=== PATIENT | male | born 1950 | race Caucasian/White ===

== ENCOUNTER → 2020-08-12 10:00 | Outpatient (BNVA) | payer OTHER, SELFPAY | PROVIDERS: PCP Internal Medicine; Visit Provider Urology | DX: C61 Malignant neoplasm of prostate (principal); R23.2 Flushing | CPT/HCPCS: 99212 ==

== ENCOUNTER → 2020-09-25 09:30 | Outpatient (BNVA) | payer OTHER, SELFPAY | PROVIDERS: Visit Provider Urology | DX: C61 Malignant neoplasm of prostate (principal) | CPT/HCPCS: 96402; 99212; J9217 ==

== ENCOUNTER → 2020-12-25 08:30 | Outpatient (BNVA) | payer OTHER, SELFPAY | PROVIDERS: PCP Internal Medicine; Visit Provider Urology | DX: C61 Malignant neoplasm of prostate (principal); R23.2 Flushing | CPT/HCPCS: 99212 ==

== ENCOUNTER → 2021-03-26 09:18 | Outpatient (BNVA) | payer OTHER, SELFPAY | PROVIDERS: PCP Internal Medicine; Visit Provider Urology | DX: R35.1 Nocturia (principal); R23.2 Flushing; C61 Malignant neoplasm of prostate | CPT/HCPCS: 99212 ==

== ENCOUNTER → 2021-04-01 08:47 | Outpatient (BNVA) | payer OTHER, SELFPAY | PROVIDERS: PCP Internal Medicine; Visit Provider Urology | DX: C61 Malignant neoplasm of prostate (principal) | CPT/HCPCS: 96402; J9217 ==

== ENCOUNTER → 2021-07-23 10:37 | Outpatient (BNVA) | payer OTHER, SELFPAY | PROVIDERS: PCP Internal Medicine; Visit Provider Urology ==

== ENCOUNTER → 2021-12-04 09:04 | Outpatient (BNVA) | payer OTHER, SELFPAY | PROVIDERS: PCP Internal Medicine; Visit Provider Urology | DX: C61 Malignant neoplasm of prostate (principal); N52.9 Male erectile dysfunction, unspecified; R35.1 Nocturia | CPT/HCPCS: Q3014 ==

== ENCOUNTER 2022-03-29 09:27 | Outpatient (REF) | payer OTHER, SELFPAY ==
[2022-03-29 12:02] LABS: Prostate Specific Antigen 0.38 ng/mL (<0.05-4.0)
[2022-04-02 13:36] LABS: Testosterone, Total 299 ng/dL (250-1100)
== END 2022-03-29 09:28 | disposition home or self-care (01) ==
LOC: HO.HMGCLDS 09:27
PROVIDERS: PCP Internal Medicine; Visit Provider Urology
DX: Z12.5 Encounter for screening for malignant neoplasm of prostate (principal); C61 Malignant neoplasm of prostate
CPT/HCPCS: 36415; 84153; 84403

== ENCOUNTER → 2022-04-16 09:38 | Outpatient (BNVA) | payer OTHER, SELFPAY | PROVIDERS: PCP Internal Medicine; Visit Provider Urology | DX: N52.9 Male erectile dysfunction, unspecified (principal); C61 Malignant neoplasm of prostate | CPT/HCPCS: 51798; 99212 ==

== ENCOUNTER 2022-07-28 09:41 | Outpatient (REF) | payer OTHER, SELFPAY ==
[2022-07-28 12:33] LABS: Prostate Specific Antigen 0.72 ng/mL (<0.05-4.0)
== END 2022-07-28 09:42 | disposition home or self-care (01) ==
LOC: HO.HMGCLDS 09:41
PROVIDERS: PCP Internal Medicine; Visit Provider Urology
DX: Z12.5 Encounter for screening for malignant neoplasm of prostate (principal); C61 Malignant neoplasm of prostate
CPT/HCPCS: 36415; 84153

== ENCOUNTER → 2022-08-11 09:07 | Outpatient (BNVA) | payer OTHER, SELFPAY | PROVIDERS: PCP Internal Medicine; Visit Provider Urology | DX: R35.1 Nocturia (principal); N52.9 Male erectile dysfunction, unspecified; C61 Malignant neoplasm of prostate | CPT/HCPCS: 99212 ==

== ENCOUNTER 2022-11-24 09:42 | Outpatient (REF) | payer OTHER, SELFPAY ==
[2022-11-24 12:20] LABS: Prostate Specific Antigen 0.59 ng/mL (<0.05-4.0)
== END 2022-11-24 09:43 | disposition home or self-care (01) ==
LOC: HO.HMGCLDS 09:42
PROVIDERS: PCP Internal Medicine; Visit Provider Urology
DX: Z12.5 Encounter for screening for malignant neoplasm of prostate (principal); C61 Malignant neoplasm of prostate
CPT/HCPCS: 36415; 84153

== ENCOUNTER → 2022-12-08 09:50 | Outpatient (BNVA) | payer OTHER, SELFPAY | PROVIDERS: PCP Internal Medicine; Visit Provider Urology | DX: C61 Malignant neoplasm of prostate (principal); C78.39 Secondary malignant neoplasm of other respiratory organs; R97.21 Rising PSA following treatment for malignant neoplasm of prostate; N52.1 Erectile dysfunction due to diseases classified elsewhere; R23.2 Flushing; Z79.899 Other long term (current) drug therapy | CPT/HCPCS: 99212 ==

== ENCOUNTER 2023-06-08 09:29 | Outpatient (REF) | payer OTHER, SELFPAY ==
[2023-06-08 12:55] LABS: Prostate Specific Antigen 0.72 ng/mL (<0.05-4.0)
== END 2023-06-08 09:30 | disposition home or self-care (01) ==
LOC: HO.HMGCLDS 09:29
PROVIDERS: PCP Internal Medicine; Visit Provider Urology
DX: Z12.5 Encounter for screening for malignant neoplasm of prostate (principal); C61 Malignant neoplasm of prostate
CPT/HCPCS: 36415; 84153

== ENCOUNTER 2023-06-15 10:41 | Outpatient (AMB) | payer OTHER, SELFPAY ==
--- NOTE | 2023-06-15 10:44 | A.OFFVIS_ITS ---
Intake Intake Visit Reasons: 6m/PSA(Set) Intake Note: Patient is present for PSA Results: 06/08/23- PSA: 0.72 ng/mL Urology Med: Sildenafil, Tadalafil Antibiotic Allergy: None Blood Thinner: None Computational Sciences Professor Required: No Accompanied by: Self / Same As Patient Allergies No Known Allergies Allergy (Verified 06/15/23 10:45) Medication List - Last Reconciled 06/15/23 by Alessandro Al MD amlodipine 5 mg PO DAILY brimonidine-timolol 0.2-0.5 % drps ophthalmic (eye) dorzolamide 2% drps ophthalmic (eye) famotidine 20 mg PO BID gabapentin 300 mg PO BEDTIME 90 days imipramine HCl 10 mg PO BEDTIME 30 days lisinopril 10 mg PO DAILY netarsudil-latanoprost 0.02-0.005 % drps ophthalmic (eye) pravastatin mg PO sildenafil 100 mg PO ONCE PRN 30 days tadalafil 10 mg PO DAILY 90 days tizanidine 2 mg PO Q6H PRN HPI HPI Comments History of Present Illness Details Mk SORIA is a very pleasant male. He is a patient of Dr Hawley. He is seen for the following urologic conditions. 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 He tells me this is a lot more to deal with than the prostate cancer. Obviously swallowing has been more difficult. PSA 08/07 PSA < 0.5, T 28, 2 0.2, T 115, 03/07 <0.1, T 17, 07/07 <0.1 112, 12/06 <0.1 120, 04/08 0.4 T 300, 08/09 0.7, 12/07 0.6, 06/09 0.72 Prostate cancer: Mcdowell 8, group 4. Initial treatment radiation with hormone therapy completed December 2019 Prostate cancer was diagnosed 09/06 Dr Al Diagnosis was reached by 08/06 needle biopsy, for elevated PSA, PSA at diagnosis PSA 16 Prior PSA Feb 2017 4.8 09/04 4.8 - started finasteride 07/05 16 Odilia grade is ten of twelve cores , 4+4 = 8 5%, , 4+3 = 7, 3+4 = 7 - multicore, high volume 50% of all total course and total volume. TNM Classification of Malignant Tumours (TNM) T1c. The D'Josemanuel (NCCN) risk category is High Risk (PSA > 20, Gl 8+, T3). Initial therapy included Primary treatment - primary therapy external beam therapy with 18 months GnRH/bicalutamide/finasteride - [facility] 01/04 - Dr Stovall - Last GnRH 03/07 Recent imaging included 09/06 , a bone scan negative 09/06 , a CT (computed tomography) scan negative. [facility] Medical History Hyperlipidemia Elevated PSA Glaucoma Erectile dysfunction Arthritis Chronic prostatitis Surgical History History of hand surgery Family History Father No problems noted. Mother Breast cancer Review of Systems Const All systems reviewed & are unremarkable except as noted in HPI and below Reports no additional complaints Resp Reports no additional complaints GI Reports no additional complaints Reports as per HPI Musc Reports no additional complaints Physical Exam Telemedicine evaluation Appropriate responses Regular breathing rate and rhythm HEENT Head: Yes normal to inspection Ears: hearing grossly normal bilaterally Eyes General: appearance normal, both eyes and all related structures Neck Neck: Yes normal visual inspection Chest Chest palpation & inspection: normal inspection of the chest Resp Effort & Inspection: normal respiratory effort and able to speak in complete sentences Assessment & Plan Assessment & Plan (1) Erectile dysfunction: Code(s): N52.9 - Male erectile dysfunction, unspecified Qualifiers: Erectile dysfunction type: post-procedural Post-procedural erectile dysfunction type: following radiation therapy Qualified Code(s): N52.35 - Erectile dysfunction following radiation therapy (2) Nocturia more than twice per night: Code(s): R35.1 - Nocturia (3) Prostate cancer: Comment: High-grade prostate cancer August 2019 initial therapy external beam radiation with 2 years hormone therapy Code(s): C61 - Malignant neoplasm of prostate Plan Six month follow-up PSA Orders: Orders Prostate Specific Antigen 6 Months C61 - Malignant neoplasm of prostate Medications: Refilled tadalafil 10 mg PO DAILY 90 days 90 tabs 1RF sexual activity N52.9 - Male erectile dysfunction, unspecified sildenafil administer 60 minutes before intended activity 100 mg PO ONCE 30 days PRN 30 tabs 1RF sexual activity N52.9 - Male erectile dysfunction, unspecified Discontinued finasteride Discontinued Reason: Patient Completed Course 5 mg PO DAILY 90 days 90 tabs 2RF Patient Instructions: Imaging studies, laboratory and physical exam results were discussed and reviewed in detail. No major barriers to patient understanding were identified. An opportunity to ask questions regarding the treatment plan was provided. All questions were answered. The patient expressed understanding and agreement with the above treatment plan. The patient is aware they should contact our office by phone for worsening of their current condition or the appearance of new urologic symptoms. Compliance is encouraged with any medications and followup testing that is ordered. It is a privilege to participate in the urologic care of your patient. If you have any questions or concerns regarding treatment for the above conditions, or other urologic issues, please do not hesitate to contact me. The office telephone contact is [phone]. This note is constructed using voice recognition software. While every effort has been made to ensure accuracy shank boner errors may have been included. Yours sincerely, Dr Alessandro Al MD, LEAH [facility] - Urology Providers of Expert, Compassionate Care for the Genitourinary System Telehealth Telehealth Location of provider rendering services: practice address Location of patient: address on file Patient Identification confirmed using: Name, : Yes Telehealth method: video Patient verbally consented to treatment: Yes Patient verbally consented to billing insurance company: Yes Patient informed of any privacy concerns related to visit: Yes Coding Level of Care Code Tele Est Pt Level 4 (72216) Diagnoses Erectile dysfunction following radiation therapy N52.35 Erectile dysfunction type: post-procedural Post-procedural erectile dysfunction type: following radiation therapy Nocturia more than twice per night R35.1 Prostate cancer C61
== END 2023-06-15 11:27 | disposition home or self-care (01) ==
LOC: HO.HUSH 10:41
PROVIDERS: PCP Internal Medicine; Visit Provider Urology
DX: C61 Malignant neoplasm of prostate (principal); N52.35 Erectile dysfunction following radiation therapy; R35.1 Nocturia
CPT/HCPCS: 99214

== ENCOUNTER → 2023-06-15 10:41 | Outpatient (BNVA) | payer OTHER, SELFPAY | PROVIDERS: PCP Internal Medicine; Visit Provider Urology ==

== ENCOUNTER 2023-12-22 15:01 | Outpatient (REF) | payer OTHER, SELFPAY ==
[2023-12-22 17:02] LABS: Prostate Specific Antigen 0.96 ng/mL (<0.05-4.0)
== END 2023-12-22 15:02 | disposition home or self-care (01) ==
LOC: HO.HMGCLDS 15:01
PROVIDERS: PCP Internal Medicine; Visit Provider Urology
DX: C61 Malignant neoplasm of prostate (principal); Z12.5 Encounter for screening for malignant neoplasm of prostate
CPT/HCPCS: 36415; 84153

== ENCOUNTER 2023-12-29 10:23 | Outpatient (AMB) | payer OTHER, SELFPAY ==
--- NOTE | 2023-12-29 10:42 | MHC.OFFVIS ---
Intake Visit Reasons: 6M PSA(set) Intake Note: Patient is Present for Follow Up PSA Urology Medication: Sildenafil, Tadalafil, Gabapentin Antibiotic Allergies: None Blood Thinners: None Patient is no longer taking tamsulosin. Patient is requesting Refill on Gabapentin States no urinary issues other than Frequency in the evening time. Executive Receptionist Required: No Allergies No Known Allergies Allergy (Verified 12/29/23 10:47) Medication List - Last Reconciled 12/29/23 by Alessandro Al MD amlodipine 5 mg PO DAILY brimonidine-timolol 0.2-0.5 % drps ophthalmic (eye) dorzolamide 2% drps ophthalmic (eye) famotidine 20 mg PO BID gabapentin 300 mg PO BEDTIME 90 days imipramine HCl 10 mg PO BEDTIME 30 days lisinopril 10 mg PO DAILY netarsudil-latanoprost 0.02-0.005 % drps ophthalmic (eye) pravastatin mg PO sildenafil 100 mg PO ONCE PRN 30 days tadalafil 5 mg PO DAILY 90 days tamsulosin 0.4 mg PO BEDTIME 30 days tizanidine 2 mg PO Q6H PRN HPI Comments Details: Mk SORIA is a very pleasant male. He is a patient of Dr Hawley. He is seen for the following urologic conditions. 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 He tells me this is a lot more to deal with than the prostate cancer. Obviously swallowing has been more difficult. Has been having issues with pollen. PSA 08/07 PSA < 0.5, T 28, 09/07 0.2, T 115, 03/07 <0.1, T 17, 07/07 <0.1 112, 12/06 <0.1 120, 04/08 0.4 T 300, 08/09 0.7, 12/07 0.6, 06/09 0.72, 12/08 0.9 Prostate cancer: Odilia 8, group 4. Initial treatment radiation with hormone therapy completed December 2019 Prostate cancer was diagnosed 09/06 Dr Al Diagnosis was reached by 08/06 needle biopsy, for elevated PSA, PSA at diagnosis PSA 16 Prior PSA Feb 2017 4.8 09/04 4.8 - started finasteride 07/05 16 Odilia grade is ten of twelve cores , 4+4 = 8 5%, , 4+3 = 7, 3+4 = 7 - multicore, high volume 50% of all total course and total volume. TNM Classification of Malignant Tumours (TNM) T1c. The D'Josemanuel (NCCN) risk category is High Risk (PSA > 20, Gl 8+, T3). Initial therapy included Primary treatment - primary therapy external beam therapy with 18 months GnRH/bicalutamide/finasteride - [facility] 01/04 - Dr Stovall - Last GnRH 03/07 Recent imaging included 09/06 , a bone scan negative 09/06 , a CT (computed tomography) scan negative. [facility] Medical History Hyperlipidemia Elevated PSA Glaucoma Erectile dysfunction Arthritis Chronic prostatitis Surgical History History of hand surgery Family History Father No problems noted. Mother Breast cancer Review of Systems Const Denies chills and Denies fever(s) Card Reports no additional complaints and Denies syncope Resp Denies cough GI Denies abdominal pain and Denies heartburn Reports as per HPI and Denies change in libido Neuro Denies syncope Psych Denies change in libido Endo Denies change in libido Physical Exam Const General: cooperative, healthy appearing, comfortable and no acute distress Orientation/consciousness: patient oriented x3 HEENT Face and sinus: Yes normal facial exam Mouth: moist mucous membranes Neck Neck: Yes normal visual inspection, Yes full ROM and Yes trachea midline Chest Chest palpation & inspection: normal inspection of the chest Resp Effort & Inspection: normal respiratory effort, able to speak in complete sentences and no respiratory distress GI Inspection: Yes normal to inspection Back/Spine/Pelvis Cervical Spine: normal cervical lordosis Thoracic/Lumbar Spine: thoracic and lumbar spine normal to inspection Skin General skin exam: no rashes or lesions noted Neuro General: patient oriented x3, gait normal, tone normal and moves all extremities Extrem General: Yes normal to inspection and Yes capillary refill normal Assessment & Plan Assessment & Plan (1) Prostate cancer: Comment: High-grade prostate cancer August 2019 initial therapy external beam radiation with 2 years hormone therapy Code(s): C61 - Malignant neoplasm of prostate Category: Medical (2) Hot flash in male: Code(s): R23.2 - [place] Category: Medical Plan Six-month follow-up PSA Orders: Orders Prostate Specific Antigen 6 Months C61 - Malignant neoplasm of prostate Patient Instructions: Imaging studies, laboratory and physical exam results were discussed and reviewed in detail. No major barriers to patient understanding were identified. An opportunity to ask questions regarding the treatment plan was provided. All questions were answered. The patient expressed understanding and agreement with the above treatment plan. The patient is aware they should contact our office by phone for worsening of their current condition or the appearance of new urologic symptoms. Compliance is encouraged with any medications and followup testing that is ordered. It is a privilege to participate in the urologic care of your patient. If you have any questions or concerns regarding treatment for the above conditions, or other urologic issues, please do not hesitate to contact me. The office telephone contact is [phone]. This note is constructed using voice recognition software. While every effort has been made to ensure accuracy chemic mangler errors may have been included. Yours sincerely, Dr Alessandro Al MD, LE[facility] - Urology Providers of Expert, Compassionate Care for the Genitourinary System Coding Level of Care Code Est Pt Level 4 (63440) Diagnoses Prostate cancer C61 Hot flash in male R23.2
== END 2023-12-29 11:29 | disposition home or self-care (01) ==
PROVIDERS: PCP Internal Medicine; Visit Provider Urology
DX: C61 Malignant neoplasm of prostate (principal); R23.2 Flushing
CPT/HCPCS: 99213

== ENCOUNTER → 2023-12-29 10:23 | Outpatient (BNVA) | payer OTHER, SELFPAY | PROVIDERS: PCP Internal Medicine; Visit Provider Urology | DX: C61 Malignant neoplasm of prostate (principal); R23.2 Flushing | CPT/HCPCS: 99212 ==

== ENCOUNTER 2024-06-21 09:45 | Outpatient (REF) | payer OTHER, SELFPAY ==
[2024-06-21 13:33] LABS: Prostate Specific Antigen 1.84 ng/mL (<0.05-4.0)
== END 2024-06-21 09:46 | disposition home or self-care (01) ==
LOC: HO.HMGCLDS 09:45
PROVIDERS: PCP Internal Medicine; Visit Provider Urology
DX: C61 Malignant neoplasm of prostate (principal); Z12.5 Encounter for screening for malignant neoplasm of prostate
CPT/HCPCS: 36415; 84153

== ENCOUNTER 2024-06-28 09:25 | Outpatient (AMB) | payer OTHER, SELFPAY ==
--- NOTE | 2024-06-28 09:25 | MHC.OFFVIS ---
Intake Visit Reasons: 6m/PSA(set) Intake Note: Patient is present for 6M/PSA Urology Medication:GABAPENTIN Antibiotic Allergy:NONE Blood Thinner:NONE Cancer Registrar Required: No Allergies No Known Allergies Allergy (Verified 06/28/24 09:26) HPI Comments Details: Mk SORIA is a very pleasant male. He is a patient of Dr Hawley. He is seen for the following urologic conditions. 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 He tells me this is a lot more to deal with than the prostate cancer. Obviously swallowing has been more difficult. Has been having issues with pollen. PSA 08/07 PSA < 0.5, T 28, 09/07 0.2, T 115, 03/07 <0.1, T 17, 07/07 <0.1 112, 12/06 <0.1 120, 04/08 0.4 T 300, 08/09 0.7, 12/07 0.6, 06/09 0.72, 12/08 0.9, 07/10 1.8 Prostate cancer: Caldwell 8, group 4. Initial treatment radiation with hormone therapy completed December 2019 Prostate cancer was diagnosed 09/06 Dr Al Diagnosis was reached by 08/06 needle biopsy, for elevated PSA, PSA at diagnosis PSA 16 Prior PSA Feb 2017 4.8 - 09/04 4.8 - started finasteride 07/05 16 Caldwell grade is ten of twelve cores - 4+4 = 8 5%, , 4+3 = 7, 3+4 = 7 - multicore, high volume 50% of all total course and total volume. TNM Classification of Malignant Tumours (TNM) T1c. The D'Josemanuel (NCCN) risk category is High Risk (PSA > 20, Gl 8+, T3). Initial therapy included Primary treatment - primary therapy external beam therapy with 18 months GnRH/bicalutamide/finasteride - [facility] 01/04 - Dr Stovall - Last GnRH 03/07 Recent imaging included 09/06 , a bone scan negative 09/06 , a CT (computed tomography) scan negative. [facility] Medical History Hyperlipidemia Elevated PSA Glaucoma Erectile dysfunction Arthritis Chronic prostatitis Surgical History History of hand surgery Family History Father No problems noted. Mother Breast cancer Review of Systems Const All systems reviewed & are unremarkable except as noted in HPI and below Reports no additional complaints Resp Reports no additional complaints GI Reports no additional complaints Reports as per HPI Musc Reports no additional complaints Physical Exam Telemedicine evaluation Appropriate responses Regular breathing rate and rhythm HEENT Head: Yes normal to inspection Ears: hearing grossly normal bilaterally Eyes General: appearance normal, both eyes and all related structures Neck Neck: Yes normal visual inspection Chest Chest palpation & inspection: normal inspection of the chest Resp Effort & Inspection: normal respiratory effort and able to speak in complete sentences Telehealth Telehealth Location of provider rendering services: practice address Location of patient: address on file Patient Identification confirmed using: Name, : Yes Telehealth method: voice only Patient verbally consented to treatment: Yes Patient verbally consented to billing insurance company: Yes Patient informed of any privacy concerns related to visit: Yes Assessment & Plan Assessment & Plan (1) Rising PSA following treatment for malignant neoplasm of prostate: Code(s): R97.21 - Rising PSA following treatment for malignant neoplasm of prostate Category: Medical (2) Prostate cancer: Comment: High-grade prostate cancer August 2019 initial therapy external beam radiation with 2 years hormone therapy Code(s): C61 - Malignant neoplasm of prostate Category: Medical Plan Rising PSA following therapy Repeat labs in 3m and PET-CT Orders: Orders PET CT fusion skull to thigh 3 Months C61 - Malignant neoplasm of prostate, R97.21 - Rising PSA following treatment for malignant neoplasm of prostate Prostate Specific Antigen 3 Months R97.21 - Rising PSA following treatment for malignant neoplasm of prostate Patient Instructions: Imaging studies, laboratory and physical exam results were discussed and reviewed in detail. No major barriers to patient understanding were identified. An opportunity to ask questions regarding the treatment plan was provided. All questions were answered. The patient expressed understanding and agreement with the above treatment plan. The patient is aware they should contact our office by phone for worsening of their current condition or the appearance of new urologic symptoms. Compliance is encouraged with any medications and followup testing that is ordered. It is a privilege to participate in the urologic care of your patient. If you have any questions or concerns regarding treatment for the above conditions, or other urologic issues, please do not hesitate to contact me. The office telephone contact is [phone]. This note is constructed using voice recognition software. While every effort has been made to ensure accuracy ear nose throat surgeon errors may have been included. Yours sincerely, Dr Alessandro Al MD, LEAH [facility] - Urology Providers of Expert, Compassionate Care for the Genitourinary System Coding Level of Care Code Tele Est Pt Level 4 (54932) Diagnoses Rising PSA following treatment for malignant neoplasm of prostate R97.21 Prostate cancer C61
== END 2024-06-28 11:40 | disposition home or self-care (01) ==
LOC: HO.HUSH 09:25
PROVIDERS: PCP Internal Medicine; Visit Provider Urology
DX: R97.21 Rising PSA following treatment for malignant neoplasm of prostate (principal); C61 Malignant neoplasm of prostate
CPT/HCPCS: 99214

== ENCOUNTER → 2024-06-28 09:25 | Outpatient (BNVA) | payer OTHER, SELFPAY | PROVIDERS: PCP Internal Medicine; Visit Provider Urology ==

== ENCOUNTER 2024-10-23 09:00 | Outpatient (REF) | payer OTHER, SELFPAY ==
--- OUTSIDE RECORDS SUMMARY | 2024-10-23 09:49 | XMS_ITS | Clinical Summary ---
Author Organization [facility] Address [address] [place] [address] Care Team Providers Care Injection Operator Name Role Phone Unavailable Primary Care Provider Unavailabl e Social History Tobacco Use Types Packs/Day Years Used Date Smoking Tobacco: Never Assessed Sex and Gender Information Value Date Recorded Sex Assigned at Not on file Gender Identity Not on file Sexual Orientation Not on file Job Start Date Occupation Industry Not on file Not on file Not on file Plan of Treatment Health Maintenance Due Date Last Done Comments Hepatitis C Screening 1949 Depression Screening 1961 Preventative Health Evaluation 1967 Colon Cancer Screening (Colonoscopy) 1994 Fall Risk Assessment 2014 COVID-19 Vaccine ( season) 2024 05/05/2021, 10/26/2020, 10/07/2020 Influenza Vaccine (#1) 2024 , 04/02/2022, 03/27/2021, Additional history exists RSV Adult > 60+ Yrs or (1 - 1-dose 75+ series) 2024 DTap / Tdap / Td (3 - Td or Tdap) 10/01/2025 10/02/2015, 02/02/2013 Pneumococcal Vaccine Completed 12/03/2015, 09/26/19 15 Shingrix-Zoster Vaccine Completed 04/16/2020, 02/11 Hepatitis B Vaccines Aged Out No long er eligible based on patient's age to complete this topic RSV Ped < 20 months Aged Out No longe r eligible based on patient's age to complete this topic
--- OUTSIDE RECORDS SUMMARY | 2024-10-23 09:50 | XMS_ITS | Encounter Summary ---
Author Organization [facility] Address [address] [place] [address] Care Team Providers Care Test Kitchen Home Economist Name Role Phone Eleanor Hawley MD Primary Care Provider [phone] Encounter Details Date Type Department Care Team Description 08/03/2023 Orders Only Medical Records [address] [place] [address] Darby Stuart Social History Tobacco Use Types Packs/Day Years Used Date Smoking Tobacco: Former Cigarettes Q uit: 09/08/2011 Smokeless Tobacco: Never Comments:2 cigarettes per da y Alcohol Use Standard Drinks/Week Comments Yes 0 (1 standard drink = 0.6 oz pure alcohol) 3 drinks per day (beer, wine, sunday) Sex Assigned at Date Recorded Male 12/22/2020 11:28 AM EDT Job Start Date Occupation Industry Not on file Not on file Not on file documented as of this encounter Plan of Treatment Not on file documented as of this encounter Procedures Procedure Name Priority Date/Time Associated Diagnosis Comments OUTSIDE CT Routine 10/12/2022 documented in this encounter Results * OUTSIDE CT (10/12/2022) Darby Stuart RADIOLOGY documented in this encounter Visit Diagnoses Not on filedocumented in this encounter Care Teams Test Kitchen Home Economist Relationship Specialty Start Date End Date Eleanor Hawley MD [address] [place] [address] PCP - General Internal Medicine 01/15/20 documented as of this encounter
--- OUTSIDE RECORDS SUMMARY | 2024-10-23 09:50 | XMS_ITS | Encounter Summary ---
Author Organization [facility] Address [address] [place] [address] Care Team Providers Care Billet Heater Operator Name Role Phone Mk Lechuga MD Primary Care Provider Unavail able Eleanor Hawley MD Primary Care Provider [phone] Encounter Details Date Type Department Care Team Description 12/20/2019 Machine Assembler For Puller Over Report Medical Records [address] [place] [address] Alicia Stovall MD Social History Tobacco Use Types Packs/Day Years [...] on file documented as of this encounter Visit Diagnoses Not on filedocumented in this encounter Care Teams Billet Heater Operator Relationship Specialty Start Date End Date Mk Lechuga MD PCP - General Internal Medicine 03/26/15 01/14/20 Eleanor Hawley MD [address] [place] [address] PCP - General Internal Medicine 01/15/20 documented as of this encounter
--- OUTSIDE RECORDS SUMMARY | 2024-10-23 09:50 | XMS_ITS | Encounter Summary ---
Author Organization [facility] Address [address] [place] [address] Care Team Providers Care Texturing Machine Fixer Name Role Phone Eleanor Hawley MD Primary Care Provider [phone] Reason for Visit * Reason Comments E-prescribe Rx Request Encounter Details Date Type Department Care Team Description 04/04/2020 Refill Adult Medicine [address] [address] Mk Lechuga MD E-prescribe Rx Request Social History Tobacco Use Types Packs/Day Years [...] on file documented as of this encounter Miscellaneous Notes * Telephone Encounter - Trevon Lamar C.M.A. - 04/07/2020 2:35 PM EDT Message left for patient to return my call. I am at [phone], needs appt. * Telephone Encounter - Eleanor Hawley MD - 04/07/2020 11:54 AM EDT Needs to be seen - he is overdue for visit - will give max 30 days * Telephone Encounter - Trevon Lamar C.M.A. - 04/07/2020 11:29 AM EDT LV 04/17/2019 Appt 04/21/2020 Lab Results Component Value Date CHOL 221 04/13/2019 LDL 112 04/13/2019 HDL 64 04/13/2019 TRIG 229 04/13/2019 SGOT 31 04/13/2019 SGPT 43 04/13/2019 * Telephone Encounter - Sona Azevedo - 04/04/2020 3:18 PM EDT Patient would like script to be: E-PRESCRIBED/FAXED TO PHARMACY WHEN WAS THE PATIENT'S LAST APPOINTMENT IN ADULT MEDICINE? 04-17-19 WHEN WAS THE LAST TIME THE PATIENT SAW THEIR PCP? Has not seen pcp yet Does patient have an upcoming appointment? Yes 04-21-20 (THE MEDICATION REQUESTED IS ON THE MED LIST ABOVE) One or some of the medications requested were on the HISTORICAL MED list Did you check the Pharmacy information above?: YES Patient wants: 90 -day supply Is this a mail order prescription request ? YES If the refill is from a FAXED refill request what is the RX # listed on the fax? N/A Patients current insurance carrier is: Payor: [id number] HE[employer] PLAN / Plan: POS $0 [place] [id number] /Product Type: POS [id number] documented in this encounter Plan of Treatment Not on file documented as of this encounter Visit Diagnoses Not on filedocumented in this encounter Care Teams Texturing Machine Fixer Relationship Specialty Start Date End Date Eleanor Hawley MD [address] [place] [id number] PCP - General Internal Medicine 01/15/20 documented as of this encounter
--- OUTSIDE RECORDS SUMMARY | 2024-10-23 09:50 | XMS_ITS | Encounter Summary ---
Author Organization [facility] Address [address] [place] [address] Care Team Providers Care Oncology Navigator Name Role Phone Eleanor Hawley MD Primary Care Provider [phone] Encounter Details Date Type Department Care Team Description 03/28/2023 Pt. Non Urgent Medical Question Adult Medicine [facility] [address] [place] [address] Amanuel Sanz MD [address] [place] [address] Social History Tobacco Use Types Packs/Day Years [...] file Not on file Not on file COVID-19 Exposure Response Date Recorded In the last 10 days, have yo u been in contact with someone who was confirmed or suspected to have Coronavirus/COVID-19? No / Unsure 03/31/2023 9:19 AM EDT documented as of this encounter Miscellaneous Notes * Telephone Encounter - Vanessa Garvin L.P.N. - 03/28/2023 10:19 AM EDTFrom: Mk Foster To: Noah Sanz Sent: 03/28/2023 9:48 AM EDT Subject: Referral [employer] requires referrals be in order for visits and [employer]. Thanks, Gunner documented in this encounter Plan of Treatment Not on file documented as of this encounter Visit Diagnoses Not on filedocumented in this encounter Care Teams Oncology Navigator Relationship Specialty Start Date End Date Eleanor Hawley MD [address] [place], [place] [phone] PCP - General Internal Medicine 01/15/20 documented as of this encounter
--- OUTSIDE RECORDS SUMMARY | 2024-10-23 09:50 | XMS_ITS | Encounter Summary ---
Author Organization [facility] Address [address] [place] [address] Care Team Providers Care Couture Dressmaker Name Role Phone Eleanor Hawley MD Primary Care Provider [phone] Reason for Visit * Reason Onset Date Comments Pre Op Visit 03/19/2022 Encounter Details Date Type Department Care Team Description 03/19/2022 Telephone Adult Medicine [facility] [address] [place] [address] Eleanor Hawley MD [address] [place] [address] Pre Op Visit Social History Tobacco Use Types Packs/Day Years [...] suspected to have Coronavirus/COVID-19? No / Unsure 02/24/2022 9:38 AM EDT documented as of this encounter Miscellaneous Notes * Telephone Encounter - Laisha Block - 03/19/2022 11:40 AM EDT Pre op appt booked and confirmed with pt by phone documented in this encounter Plan of Treatment Not on file documented as of this encounter Visit Diagnoses Not on filedocumented in this encounter Care Teams Couture Dressmaker Relationship Specialty Start Date End Date Eleanor Hawley MD [address] [place] [address] PCP - General Internal Medicine 01/15/20 documented as of this encounter
--- OUTSIDE RECORDS SUMMARY | 2024-10-23 09:50 | XMS_ITS | Encounter Summary ---
Author Organization [facility] Address [address] [place] [address] Care Team Providers Care Perch Machine Inspector Name Role Phone Eleanor Hawley MD Primary Care Provider [phone] Encounter Details Date Type Department Care Team Description 10/07/2022 Aerospace Engineer Officer Armament Report Medical Records [address] [place] [address] [facility] [address] [place] [address] Social History Tobacco Use Types Packs/Day Years [...] Recorded In the last 10 days, have jake u been in contact with someone who was confirmed or suspected to have Coronavirus/COVID-19? No / Unsure 10/06/2022 8:47 AM EDT documented as of this encounter Plan of Treatment Not on file documented as of this encounter Visit Diagnoses Not on filedocumented in this encounter Care Teams Perch Machine Inspector Relationship Specialty Start Date End Date Eleanor Hawley MD [address] [place] [address] PCP - General Internal Medicine 01/15/20 documented as of this encounter
--- OUTSIDE RECORDS SUMMARY | 2024-10-23 09:50 | XMS_ITS | Encounter Summary ---
Author Organization [facility] Address [address] [place] [address] Care Team Providers Care Band Instrument Maker Name Role Phone Mynor Thomson MD Primary Care Provider Unavail able [facility], Pcp Primary Care Provider Mk South MD Primary Care Provider Unavail able Eleanor Hawley MD Primary Care Provider [phone] Encounter Details Date Type Department Care Team Description 11/11/2014 Hereditary Cancer Qu iz Results Medical Records [address] [place] [address] Abstract, Provider Social History Tobacco Use Types Packs/Day Years Used Date Smoking Tobacco: Former Cigarettes Q uit: 09/08/2011 Smokeless Tobacco: Former Comments:2 cigarettes per da y Alcohol Use Standard Drinks/Week Comments Yes 16.7 (1 standard drink = 0.6 oz pure alcohol) Sex Assigned at Date Recorded Male 12/22/2020 11:28 AM EDT Job Start Date Occupation Industry Not on file Not on file Not on file documented as of this encounter Plan of Treatment Not on file documented as of this encounter Visit Diagnoses Not on filedocumented in this encounter Care Teams Band Instrument Maker Relationship Specialty Start Date End Date Mynor Thomson MD PCP - General Internal Medicine 09/10/14 01/14/15 [facility], Pcp PCP - General Internal Medicine 01/15/15 03/25/15 Mk Lechuga MD PCP - General Internal Medicine 03/26/15 01/14/20 Eleanor Hawley MD [address] [place] [address] PCP - General Internal Medicine 01/15/20 documented as of this encounter
--- OUTSIDE RECORDS SUMMARY | 2024-10-23 09:50 | XMS_ITS | Encounter Summary ---
Author Organization [facility] Address [address] [place] [address] Care Team Providers Care Metal Handler Name Role Phone Mk Lechuga MD Primary Care Provider Unavail able Eleanor Hawley MD Primary Care Provider [phone] Encounter Details Date Type Department Care Team Description 09/13/2019 Pasteurizing Machine Operator Report Medical Records [address] [place] [address] Alessandro Al MD Social History Tobacco Use Types Packs/Day [...] on filedocumented in this encounter Care Teams Metal Handler Relationship Specialty Start Date End Date Mk Lechuga MD PCP - General Internal Medicine 03/26/15 01/14/20 Eleanor Hawley MD [address] [place] [address] PCP - General Internal Medicine 01/15/20 documented as of this encounter
--- OUTSIDE RECORDS SUMMARY | 2024-10-23 09:50 | XMS_ITS | Encounter Summary ---
Author Organization [facility] Address [address] [place] [address] Care Team Providers Care Retaining Room Cutter Name Role Phone Mk Lechuga MD Primary Care Provider Unavail able Eleanor Hawley MD Primary Care Provider [phone] Encounter Details Date Type Department Care Team Description 09/04/2019 Hospital Medical Records [address] [place] [address] Alessandro Al MD Social History Tobacco Use [...] on filedocumented in this encounter Care Teams Retaining Room Cutter Relationship Specialty Start Date End Date Mk Lechuga MD PCP - General Internal Medicine 03/26/15 01/14/20 Eleanor Hawley MD [address] [place] [address] PCP - General Internal Medicine 01/15/20 documented as of this encounter
--- OUTSIDE RECORDS SUMMARY | 2024-10-23 09:50 | XMS_ITS | Encounter Summary ---
Author Organization [facility] Address [address] [place] [address] Care Team Providers Care Customer Sales Distributor Name Role Phone Eleanor Hawley MD Primary Care Provider [phone] Reason for Visit * Reason Onset Date Comments Mychart Rx Refill 03/30/2023 Encounter Details Date Type Department Care Team Description 03/30/2023 Pt. Non Urgent Medical Question Adult Medicine [address] [address] Eleanor Hawley MD [address] [place] [address] Social History Tobacco Use Types Packs/Day Years [...] encounter Miscellaneous Notes * Telephone Encounter - Ashley Best M.A. - 03/30/2023 10:19 AM EDTFrom: Mk Foster To: Axel Hawley Sent: 03/30/2023 9:56 AM EDT Subject: BP medications [facility] needs your approval for refills. I'm running out. Thanks, Gunner documented in this encounter Plan of Treatment Not on file documented as of this encounter Visit Diagnoses Not on filedocumented in this encounter Care Teams Customer Sales Distributor Relationship Specialty Start Date End Date Eleanor Hawley MD [address] [place] [address] PCP - General Internal Medicine 01/15/20 documented as of this encounter
--- OUTSIDE RECORDS SUMMARY | 2024-10-23 09:50 | XMS_ITS | Encounter Summary ---
Author Organization [facility] Address [address] [place] [address] Care Team Providers Care Grill Chef Name Role Phone Eleanor Hawley MD Primary Care Provider [phone] Encounter Details Date Type Department Care Team Description 03/15/2022 Pt. Non Urgent Medical Question Adult Medicine [facility] [address] [place] [address] Eleanor Hawley MD [address] [place] [address] Social History Tobacco Use Types Packs/Day Years [...] Telephone Encounter - Ashley Best M.A. - 03/15/2022 4:13 PM EDTFrom: Mk Foster To: Axel Hawley Sent: 03/15/2022 3:47 PM EDT Subject: Surgery Biopsy Surgery scheduled Apr.28 for me at [facility]. I was referred to this group last year by Candido. I wish there was a way of feeding you information. documented in this encounter Plan of Treatment Not on file documented as of this encounter Visit Diagnoses Not on filedocumented in this encounter Care Teams Grill Chef Relationship Specialty Start Date End Date Eleanor Hawley MD [address] [place] [address] PCP - General Internal Medicine 01/15/20 documented as of this encounter
--- OUTSIDE RECORDS SUMMARY | 2024-10-23 09:50 | XMS_ITS | Encounter Summary ---
Author Organization [facility] [employer] [facility] Address [address] [place] [address] Care Team Providers Care Radio Director Name Role Phone Eleanor Hawley MD Primary Care Provider [phone] Encounter Details Date Type Department Care Team Description 05/08/2020 Inspector Aluminum Boat Report Medical Records [address] [place] [address] Alicia Stovall MD Social History Tobacco Use [...] Exposure Response Date Recorded In the last month, have you been in contact with someone who was confirmed or suspected to have Coronavirus / COVID-19? No / Unsure 05/05/2020 9:34 AM EDT documented as of this encounter Plan of Treatment Not on file documented as of this encounter Visit Diagnoses Not on filedocumented in this encounter Care Teams Radio Director Relationship Specialty Start Date End Date Eleanor Hawley MD [address] [place] [address] PCP - General Internal Medicine 01/15/20 documented as of this encounter
--- OUTSIDE RECORDS SUMMARY | 2024-10-23 09:50 | XMS_ITS | Encounter Summary ---
Author Organization [facility] Address [address] [place] [address] Care Team Providers Care Signal Tower Director Name Role Phone Eleanor Hawley MD Primary Care Provider [phone] Encounter Details Date Type Department Care Team Description 09/21/2022 Milk House Worker Report Medical Records [address] [place] [address] Gabino Echevarria Social History Tobacco Use Types Packs/Day Years [...] suspected to have Coronavirus/COVID-19? No / Unsure 09/08/2022 8:40 AM EST documented as of this encounter Plan of Treatment Not on file documented as of this encounter Visit Diagnoses Not on filedocumented in this encounter Care Teams Signal Tower Director Relationship Specialty Start Date End Date Eleanor Hawley MD [address] [place], [place] [phone] PCP - General Internal Medicine 01/15/20 documented as of this encounter
--- OUTSIDE RECORDS SUMMARY | 2024-10-23 09:50 | XMS_ITS | Encounter Summary ---
Author Organization [facility] Address [address] [place] [address] Care Team Providers Care Ship Engineer Name Role Phone Eleanor Hawley MD Primary Care Provider [phone] Encounter Details Date Type Department Care Team Description 03/05/2021 Chairman & Co Founder Report Medical Records [address] [place] [address] Gideon Leonard MD Social History Tobacco Use Types Packs/Day [...] have Coronavirus / COVID-19? No / Unsure 02/11/2021 9:07 AM EDT documented as of this encounter Plan of Treatment Not on file documented as of this encounter Visit Diagnoses Not on filedocumented in this encounter Care Teams Ship Engineer Relationship Specialty Start Date End Date Eleanor Hawley MD [address] [place] [address] PCP - General Internal Medicine 01/15/20 documented as of this encounter
--- OUTSIDE RECORDS SUMMARY | 2024-10-23 09:50 | XMS_ITS | Encounter Summary ---
Author Organization [facility] [employer] [facility] Address [address] [place] [address] Care Team Providers Care Interlocking Pavement Installer Name Role Phone Eleanor Hawley MD Primary Care Provider Encounter Details Date Type Department Care Team Description 09/11/2022 Pt. Referral Request [facility] [address] [place] [address] Md Ambrosio Social History Tobacco Use Types Packs/Day Years [...] In the last 10 days, have jake pedersen been in contact with someone who was confirmed or suspected to have Coronavirus/COVID-19? No / Unsure 09/08/2022 8:40 AM EST documented as of this encounter Plan of Treatment Not on file documented as of this encounter Visit Diagnoses Not on filedocumented in this encounter Care Teams Interlocking Pavement Installer Relationship Specialty Start Date End Date Eleanor Hawley MD [address] [place] [address] PCP - General Internal Medicine 01/15/20 documented as of this encounter
--- OUTSIDE RECORDS SUMMARY | 2024-10-23 09:50 | XMS_ITS | Encounter Summary ---
Author Organization [facility] Address [address] [place] [address] Care Team Providers Care Mens Locker Room Attendant Name Role Phone Eleanor Hawley MD Primary Care Provider [phone] Encounter Details Date Type Department Care Team Description 04/11/2020 Drum Maker Report Medical Records [address] [place] [address] Alicia Stovall MD Social History Tobacco Use [...] on filedocumented in this encounter Care Teams Mens Locker Room Attendant Relationship Specialty Start Date End Date Eleanor Hawley MD [address] [place] [address] PCP - General Internal Medicine 01/15/20 documented as of this encounter
--- OUTSIDE RECORDS SUMMARY | 2024-10-23 09:50 | XMS_ITS | Encounter Summary ---
Author Organization [facility] Address [address] [place] [address] Care Team Providers Care Vulcanizing Machine Operator Name Role Phone Eleanor Hawley MD Primary Care Provider [phone] Encounter Details Date Type Department Care Team Description 01/20/2023 Pt. Non Urgent Medical Question Adult Medicine [facility] [address] [place] [address] Eleanor Hawley MD [address] [place] [address] Social History Tobacco Use Types Packs/Day Years [...] suspected to have Coronavirus/COVID-19? No / Unsure 01/03/2023 8:28 AM EDT documented as of this encounter Miscellaneous Notes * Telephone Encounter - Unique Pastor M.A. - 01/21/2023 8:28 AM EDTFrom: Mk Foster To: Axel Hawley Sent: 01/20/2023 3:29 PM EDT Subject: back referral I need a back referral for service dates: 11/18/2022 and 11/29/2022 . [facility]. [facility] said the referral can be faxed to: [phone]. Thanks, Gunner documented in this encounter Plan of Treatment Not on file documented as of this encounter Visit Diagnoses Not on filedocumented in this encounter Care Teams Vulcanizing Machine Operator Relationship Specialty Start Date End Date Eleanor Hawley MD [address] [place] [address] PCP - General Internal Medicine 01/15/20 documented as of this encounter
--- OUTSIDE RECORDS SUMMARY | 2024-10-23 09:50 | XMS_ITS | Encounter Summary ---
Author Organization [facility] [employer] [facility] Address [address] [place] [address] Care Team Providers Care Supervisor Core Shop Name Role Phone Eleanor Hawley MD Primary Care Provider [phone] Reason for Visit * Reason Onset Date Comments Medication 10/13/2023 Encounter Details Date Type Department Care Team Description 10/13/2023 Refill Gastroenterology - [place] [address] [facility] [address] [place] [address] Morales Cordoba MD [address] [facility] [address] [place] [address] Medication Social History Tobacco Use Types Packs/Day Years [...] on filedocumented in this encounter Care Teams Supervisor Core Shop Relationship Specialty Start Date End Date Eleanor Hawley MD [address] [place] [address] PCP - General Internal Medicine 01/15/20 documented as of this encounter
--- OUTSIDE RECORDS SUMMARY | 2024-10-23 09:50 | XMS_ITS | Encounter Summary ---
Author Organization [facility] Address [address] [place] [address] Care Team Providers Care Stone Rubber Name Role Phone Eleanor Hawley MD Primary Care Provider [phone] Reason for Visit * Reason Onset Date Comments Advice 02/11/2023 Encounter Details Date Type Department Care Team Description 02/11/2023 Pt. Non Urgent Medical Question Adult Medicine [address] [address] Eleanor Hawley MD [address] [place] [address] Social History Tobacco Use Types Packs/Day Years [...] suspected to have Coronavirus/COVID-19? No / Unsure 01/26/2023 9:17 AM EDT documented as of this encounter Miscellaneous Notes * Telephone Encounter - Perla Stiles M.A. - 02/11/2023 3:01 PM EDTFrom: Mk Foster To: Axel Hawley Sent: 02/11/2023 2:25 PM EDT Subject: Referral I need a referral for an office appointment with Yisel Mendoza NP for Dr. Issac Gordon. Appointment Date is 03/02/2023 at [facility] [place]. [address] [facility] Kimmy Gunner documented in this encounter Plan of Treatment Not on file documented as of this encounter Visit Diagnoses Not on filedocumented in this encounter Care Teams Stone Rubber Relationship Specialty Start Date End Date Eleanor Hawley MD [address] [place] [address] PCP - General Internal Medicine 01/15/20 documented as of this encounter
--- OUTSIDE RECORDS SUMMARY | 2024-10-23 09:50 | XMS_ITS | Encounter Summary ---
Author Organization [facility] Address [address] [facility] [place] [address] Care Team Providers Care Brazing Machine Tender Name Role Phone Eleanor Hawley MD Primary Care Provider [phone] Encounter Details Date Type Department Care Team Description 12/30/2020 Pt. Non Urgent Medic al Question Adult Medicine [address] [address] Yahir Humphries MD Social History Tobacco Use Types Packs/Day [...] have Coronavirus / COVID-19? No / Unsure 12/31/2020 9:34 AM EDT documented as of this encounter Plan of Treatment Not on file documented as of this encounter Visit Diagnoses Not on filedocumented in this encounter Care Teams Brazing Machine Tender Relationship Specialty Start Date End Date Eleanor Hawley MD [address] [place] [address] PCP - General Internal Medicine 01/15/20 documented as of this encounter
--- OUTSIDE RECORDS SUMMARY | 2024-10-23 09:50 | XMS_ITS | Encounter Summary ---
Author Organization [facility] Address [address] [place] [address] Care Team Providers Care Water/Wastewater Engineer Name Role Phone Eleanor Hawley MD Primary Care Provider [phone] Encounter Details Date Type Department Care Team Description 12/25/2020 Indirect Sales Exec Report Medical Records [address] [place] [address] Alessandro Al MD Social History Tobacco Use [...] have Coronavirus / COVID-19? No / Unsure 12/18/2020 2:47 PM EDT documented as of this encounter Plan of Treatment Not on file documented as of this encounter Visit Diagnoses Not on filedocumented in this encounter Care Teams Water/Wastewater Engineer Relationship Specialty Start Date End Date Eleanor Hawley MD [address] [place] [address] PCP - General Internal Medicine 01/15/20 documented as of this encounter
--- OUTSIDE RECORDS SUMMARY | 2024-10-23 09:50 | XMS_ITS | Encounter Summary ---
Author Organization [facility] Address [address] [place] [address] Care Team Providers Care Marking Machine Operator Name Role Phone Eleanor Hawley MD Primary Care Provider [phone] Reason for Visit * Reason Onset Date Comments REFERRAL 02/23/2023 Encounter Details Date Type Department Care Team Description 02/23/2023 Telephone Adult Medicine [facility] [address] [place] [address] Eleanor Hawley MD [address] [place] [id number] REFERRAL Social History Tobacco Use Types Packs/Day Years [...] suspected to have Coronavirus/COVID-19? No / Unsure 02/23/2023 8:56 AM EDT documented as of this encounter Miscellaneous Notes * Telephone Encounter - Marilyn Olivo - 02/23/2023 4:17 PM EDT What insurance does the patient have today? Payor: [employer] / Plan: POS $0 BIANCAWN [id number] / Product Type: POS [id number] Effective 04/17/09: [employer] will not retro referral requests over 90 days. If request is for this please instruct patient to call the 800# on their insurance card to appeal. Do not submit a request. Referrals cannot be processed if the insurance is not accurate. If the insurance listed above in red is NO BILLING INFORMATION FOUND FOR THIS ENCOUTNER The patients correct insurance must be obtained and registered in [facility] or their referral can not be processed. Is this a retro request? YES. If yes for what date of service do you need the retro referral? 11/18/22 Who is calling to request this referral? Pateint If the caller is not the patient, what is their name? N/A Ask the patient WHO referred them to this specialty: Patient self referred FIRST and LAST NAME of SPECIALIST PATIENT is seeing: Racheal Fuller NPI# [id number] What specialty is this? Speech pathology DIAGNOSIS Patient is being seen for (Not a body part or a procedure): swollowing Have you seen this SPECIALIST for this PROBLEM/DX before?NO If YES, when: Have you checked REVIEW or the APPT DESK to see if this referral has already been done or has visits left? YES Is this visit:Initial Visit Address of Specialist: [address] [place] [address] Phone # of Specialist:[phone] Fax #: (if applicable): Does patient have an appointment scheduled?: NO Date of appointment- (including a retro-request): 11/18/22 Is this appointment related to: Not MVA, WC or Surgery related documented in this encounter Plan of Treatment Not on file documented as of this encounter Visit Diagnoses Not on filedocumented in this encounter Care Teams Marking Machine Operator Relationship Specialty Start Date End Date Eleanor Hawley MD [address] [place] [address] PCP - General Internal Medicine 01/15/20 documented as of this encounter
--- OUTSIDE RECORDS SUMMARY | 2024-10-23 09:50 | XMS_ITS | Encounter Summary ---
Author Organization [facility] Address [address] [place] [address] Care Team Providers Care Manufacturing Technology Professor Name Role Phone Eleanor Hawley MD Primary Care Provider [phone] Reason for Visit * Reason Onset Date Comments Provider Call Back 03/28/2023 Encounter Details Date Type Department Care Team Description 03/28/2023 Pt. Non Urgent Medical Question Adult Medicine [address] [address] Amanuel Sanz MD [address] [place] [id number] Social History Tobacco Use Types Packs/Day Years [...] AM EDT documented as of this encounter Progress Notes * Kat Leo M.A. - 03/29/2023 8:40 AM EDT , Please see Mychart message to review and advise the patient as I do not see any notation in [facility] note, thank you. documented in this encounter Miscellaneous Notes * Telephone Encounter - Vanessa Garvin L.P.N. - 03/29/2023 8:26 AM EDTFrom: Mk Foster To: Noah Sanz Sent: 03/28/2023 5:28 PM EDT Subject: Blood Draw Would you repeat the component your were looking for. I searched my 03/22 draw results and I couldn'tfind it. Thanks, Gunner documented in this encounter Plan of Treatment Not on file documented as of this encounter Visit Diagnoses Not on filedocumented in this encounter Care Teams Manufacturing Technology Professor Relationship Specialty Start Date End Date Eleanor Hawley MD [address] [place] [id number] PCP - General Internal Medicine 01/15/20 documented as of this encounter
--- OUTSIDE RECORDS SUMMARY | 2024-10-23 09:50 | XMS_ITS | Encounter Summary ---
Author Organization [facility] Address [address] [place] [address] Care Team Providers Care Rn Clinical Resource Name Role Phone Mk Lechuga MD Primary Care Provider Unavail able Eleanor Hawley MD Primary Care Provider [phone] Encounter Details Date Type Department Care Team Description 09/02/2017 Adjuster Piano Action Report Medical Records [address] [place] [id number] Alessandro Al MD Social History Tobacco Use [...] on filedocumented in this encounter Care Teams Rn Clinical Resource Relationship Specialty Start Date End Date Mk Lechuga MD PCP - General Internal Medicine 03/26/15 01/14/20 Eleanor Hawley MD [address] [place] [id number] PCP - General Internal Medicine 01/15/20 documented as of this encounter
--- OUTSIDE RECORDS SUMMARY | 2024-10-23 09:50 | XMS_ITS | Clinical Summary ---
Author Organization [employer] Address [address] [facility] [address] [place] [address] Care Team Providers Care Patch Worker Name Role Phone Unavailable Primary Care Provider Unavailabl e Immunizations Name Administration Dates Next Due Influenza, seasonal, injectable, preservative fr ee 04/04/2024 Social History Tobacco Use Types Packs/Day Years Used Date Smoking Tobacco: Never Assessed Sex and Gender Information Value Date Recorded Sex Assigned at Male 04/10/2024 2:42 PM EDT Legal Sex Female 3:47 PM EDT Gender Identity Male 04/10/2024 2:42 PM EDT Sexual Orientation Straight 04/10/2024 2: 42 PM EDT Plan of Treatment Health Maintenance Due Date Last Done Comments CT Colonography 1949 Colonoscopy 1949 Colorectal Cancer Screening 1949 Depression Screening 1949 FIT DNA/Cologuard 1949 FIT 1949 FOBT 1949 Lipid Panel 1949 SDOH Screening 1949 Sigmoidoscopy 1949 Alcohol/Substance Use Screening 1961 Tobacco Screening 1961 Hepatitis C Screening 1967 COVID-19 Vaccine ( season) 2024 04/15/2023, 04/08/2022, 11/03/2021, Additional history exists RSV Patients and Patients Aged 60 years or older (1 - 1-dose 75+ series) 2024 DTaP/Tdap/Td Vaccines (3 - Td or Tdap) 10/01/2025 10/02/2015, 02/02/2013, 03/12/2003 Pneumococcal Vaccine: 50+ Years Completed 12/03/2015, 09/25/2014 Zoster Vaccines Completed 04/16/2020, 01/16, 01/28/2012 Influenza Vaccine Completed 04/04/2024, , 03/31/2023, Additional history exists HIB Vaccines Aged Out No longer eligi ble based on patient's age to complete this topic HPV Vaccines Aged Out No longer eligi ble based on patient's age to complete this topic Hepatitis A Vaccines Aged Out No long er eligible based on patient's age to complete this topic Hepatitis B Vaccines Aged Out No long er eligible based on patient's age to complete this topic IPV Vaccines Aged Out No longer eligi ble based on patient's age to complete this topic Meningococcal Vaccine Aged Out No yasmine akanksha eligible based on patient's age to complete this topic RSV under 20 months Aged Out No longe r eligible based on patient's age to complete this topic Rotavirus Vaccines Aged Out No longer eligible based on patient's age to complete this topic Insurance GENERIC COMMERCIAL
--- OUTSIDE RECORDS SUMMARY | 2024-10-23 09:50 | XMS_ITS | Encounter Summary ---
Author Organization [facility] Address [address] [place] [address] Care Team Providers Care Cage Loader Name Role Phone Mk Lechuga MD Primary Care Provider Unavail able Eleanor Hawley MD Primary Care Provider [phone] Reason for Visit * Reason Comments E-prescribe Rx Request Encounter Details Date Type Department Care Team Description 11/26/2016 Refill Adult Medicine [address] [address] Mk Lechuga MD E-prescribe Rx Request Social [...] encounter Miscellaneous Notes * Telephone Encounter - Jasmin Winslow M.A. - 11/26/2016 9:53 AM EDT Pt needs appt-msg was left by BSR * Telephone Encounter - Ritika Ina - 11/26/2016 9:42 AM EDT Patient would like script to be: E-PRESCRIBED/FAXED TO PHARMACY WHEN WAS THE PATIENT'S LAST APPOINTMENT IN ADULT MEDICINE? 12/17/15 WHEN WAS THE LAST TIME THE PATIENT SAW THEIR PCP? Same as above Does patient have an upcoming appointment? [facility]. Appt due mar 2017 (THE MEDICATION REQUESTED IS ON THE MED LIST ABOVE) All of the medications requested were on the CURRENT MEDS list Did you check the Pharmacy information above?: YES Patient wants: 30 -day supply Is this a mail order prescription request ? NO Patients current insurance carrier is: Payor: [employer] / Plan: POS $0 MEALLY [id number] /Product Type: POS [id number] documented in this encounter Plan of Treatment Not on file documented as of this encounter Visit Diagnoses Not on filedocumented in this encounter Care Teams Cage Loader Relationship Specialty Start Date End Date Mk Lechuga MD PCP - General Internal Medicine 03/26/15 01/14/20 Eleanor Hawley MD [address] [place] [id number] PCP - General Internal Medicine 01/15/20 documented as of this encounter
--- OUTSIDE RECORDS SUMMARY | 2024-10-23 09:50 | XMS_ITS | Encounter Summary ---
Author Organization [facility] Address [address] [place] [address] Care Team Providers Care Chip Bin Operator Name Role Phone Eleanor Hawley MD Primary Care Provider [phone] Encounter Details Date Type Department Care Team Description 11/12/2021 Pt. Referral Request [facility] MyChart [address] [place] [address] Md Ambrosio Social History Tobacco Use Types [...] suspected to have Coronavirus/COVID-19? No / Unsure 10/28/2021 9:20 AM EDT documented as of this encounter Plan of Treatment Not on file documented as of this encounter Visit Diagnoses Not on filedocumented in this encounter Care Teams Chip Bin Operator Relationship Specialty Start Date End Date Eleanor Hawley MD [address] [place] [address] PCP - General Internal Medicine 01/15/20 documented as of this encounter
--- OUTSIDE RECORDS SUMMARY | 2024-10-23 09:50 | XMS_ITS | Clinical Summary ---
Author Organization [facility] [address] [place] [address] Address [address] [place], [place] Phone Care Team Providers Care Pelletizer Name Role Phone Eleanor Hawley MD Primary Care Provider [phone] Allergies No known active allergies Medications brimonidine-harinder oloL (COMBIGAN) 0.2-0.5 % ophthalmic solution Administer 1 drop into affected eye(s) 2 (two) times a day. O.U. Active cyanocobalamin (VITAMIN B-12) 1,000 mcg/mL injection Inject 1 mL (1,000 mcg total) into the shoulder, thigh, or buttocks every 30 (thirty) days. 4 Active dorzolamide (TRUSOPT) 2 % ophthalmic solution Administer 2 drops into both eyes 2 (two) times a day. 7 Active netarsudiL-britt noprost (Rocklatan) 0.02-0.005 % drops 1 Active pravastatin (PRAVACHOL) 20 mg tablet Take 1 tablet (20 mg total) by mouth at bedtime. 90 tablet 5 Active lisinopriL (PRINIVIL,ZESTR IL) 10 mg tablet Take 1 tablet (10 mg total) by mouth at bedtime. 90 tablet 5 Active amLODIPine (NORVASC) 5 mg tablet Take 1 tablet (5 mg total) by mouth at bedtime. 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 Al, s/p Rt and jeovany Odilia 8 Erectile dysfunction 03/27/2015 Hyperlipidemia 03/26/2015 Ingrown right big toenail 03/26/2015 Overview (05/02/2024): Partial nail avulsion, 04/01/2014 Arthritis of big toe 05/31/2011 Skull fracture 09/18/2008 Overview (05/02/2024): Drinking alcohol and fell down stairs and had skull fracture with frontal lobe hematoma October 2007. Still with some decreased hearing Alcohol abuse 06/20/2006 Overview (05/02/2024): 20-30 beers per week Glaucoma 06/20/2006 Hypertension 06/20/2006 Encounters Date Type Department Care Team Description 09/28/2024 2:56 PM EDT - 09/28/2024 11:59 PM EDT Hospital Encounter [facility] PET Scan [address] [place] [address] Malignant neoplasm of prostate (CMS/HCC) Discharge Disposition: Home or Self Care 09/19/2024 1:30 PM EST Clinical Support Adult Medicine [address] [phone] B12 deficiency (Primary Dx) 08/30/2024 1:15 PM EST Office Visit Adult [address] [phone] Eleanor Hawley MD Prediabetes (Primary Dx); Primary hypertension; Other hyperlipidemia; B12 deficiency; Glaucoma of both eyes, unspecified glaucoma type 08/22/2024 4:15 PM EST Clinical Support Adult [address] [phone] B12 deficiency (Primary Dx) 07/25/2024 2:15 PM EST Clinical Support [address] [phone] B12 deficiency (Primary Dx) from Last 3 Months Immunizations Name Administration Dates Next Due COVID-19 (Moderna/Spikevax) 12yo and older 04/15/2023 Influenza Quadravalent, MDCK , 0.5ml, with preservative (Flucelvax) 6mo and older 06/15/2017 Influenza trivalent, 0.5mL ( Fluad) 65yo and older 03/31/2023,04/02/2022,03/27/2021,04/15,04/17/2019,05/08/2018 Influenza trivalent, 0.5mL, preservative free (Fluarix; FluLaval; Fluzone) ages 6mo and older (Afluria) 3 years and older 05/16/2016,03/27/2015,04/30/2014,05/15,04/04/2012,05/18/2011 Influenza trivalent, with pr eservative (Fluzone; Afluria) 6mo and older 03/14/2024 Pfizer (ages 12 & older) Biv alent, COVID-19 04/08/2022,11/03/2021 Pfizer SARS-CoV-2 COVID-19, mRNA, LNP-S, preservative free 05/05/2021,10/26/2020,10/07/2020 Pneumococcal conjugate 13 va lent (Prevnar 13, PCV13) 2mo and older 12/03/2015 Pneumococcal polysaccharide 23 valent (Pneumovax 23) 2yo and older 09/25/2014 RSV, bivalent, protein subun it RSVpreF, 0.5mL, Preservative Free (Arexvy) 60yo and older 07/05/2023 Td, Unspecified 03/12/2003 Tdap Tetanus diptheria acell ular pertussis (Boostrix; Adacel) 7yo and older 10/02/2015,02/02/2013 Zoster Live 01/28/2012 Zoster recombinant (Shingrix ) 19yo and older 04/16/2020,02/12/2020 Surgical History Surgery Date Site/Laterality Comments COLONOSCOPY 2002 normal COLONOSCOPY 2012 normal OTHER SURGICAL HISTORY 1975 Right : trauma to arm HAND SURGERY 2019 Right trigger finger Medical History Medical History Date Comments Essential hypertension, benign 06/20/2006 Unspecified glaucoma(365.9) 06/20/2006 Alcohol abuse, unspecified 06/20/2006 Prostate cancer ([facility]) B12 deficiency 12/16/2020 Prediabetes 04/17/2019 Arthritis of big toe 05/31/2011 Skull fracture ([facility]) 09/18/2008 Drinkin g alcohol and fell down stairs and had skull fracture with frontal lobe hematoma October 2007. 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 Family History Medical History Relation Name Comments Heart attack Brother Heart failure Father CAD, alcoholis m Breast cancer Mother Breast cancer Sister Relation Name Status Comments Brother Father Mother (Age 88) Sister Social History Tobacco Use Types Packs/Day Years Used Date Smoking Tobacco: Former Cigarettes Q uit: 09/08/2011 Smokeless Tobacco: Never Tobacco Cessation:Counseling Given: Not Answered Alcohol Use Standard Drinks/Week Comments Yes 0 (1 standard drink = 0.6 oz pur e alcohol) Housing Instability Answer Date Recorde d Are you worried that in the next 2 months you may not have stable housing? No 08/23/2024 Food Access & Nutrition Answer Date Rec orded Do you have access to a vari ety of food including fruits and vegetables? No 08/23/2024 Access to Healthcare Answer Date Record ed Within the last 3 months, ho w many times did you visit the emergency department for your medical care? 0 08/23/2024 Health Literacy Answer Date Recorded How often do you need to hav e someone help you when you read instructions, pamphlets, or other written material from your doctor or pharmacy? Patient declined 08/23/2024 Caregiver: How often do you need to have someone help you when you read instructions, pamphlets, or other written material from your doctor or pharmacy? Not on file 025 Financial Risk Answer Date Recorded How hard is it for you to pa y for the very basics like food, housing, medical care, and air conditioning / heating? Patient declined 08/23/2024 Transportation Answer Date Recorded Has the lack of transportati on kept you from meetings, work, or from getting things needed for daily living? Patient declined 08/23/2024 Has the lack of transportati on kept you from medical appointments or from getting medications? Patient declined 08/23/2024 Social Isolation Answer Date Recorded How often do you feel lonely or isolated from those around you? Patient declined 08/23/2024 Food Risk Answer Date Recorded Within the past 12 months we worried whether our food would run out before we got money to buy more. Never true 08/23/2024 Within the past 12 months th e food we bought just didn't last and we didn't have money to get more. Never true 08/23/2024 Dependent Care Answer Date Recorded Do you need help finding or paying for care for your loved ones. For example, director maternal child or elderly care for an older adult? Patient declined 08/23/2024 Education Answer Date Recorded Do you think completing more education or training, like finishing a GED, going to college, or learning a trade, would be helpful for you? Patient declined 08/23/2024 Employment and Income Answer Date Recor ded During the last four weeks, have you been actively looking for work? Patient declined 08/23/2024 Living Situation Answer Date Recorded What is your living situation? 0 08/23/2024 Sex and Gender Information Value Date Recorded Sex Assigned at Not on file Legal Sex Male 12:17 AM EST Gender Identity Not on file Sexual Orientation Not on file Obstetrics History Last Filed Vital Signs Vital Sign Reading Time Taken Comments Blood Pressure 116/50 08/30/2024 12:46 PM EST Pulse 72 08/30/2024 12:46 PM EST Temperature 36.2 ??C (97.2 ??F) 08/30/2024 12:[address] Respiratory Rate 16 08/30/2024 12:46 PM EST Oxygen Saturation 99% 08/30/2024 12:46 PM EST Inhaled Oxygen Concentration - - Weight 91.2 kg (201 lb 1.6 oz) 08/30/2024 12:46 PM EST Height 177.8 cm (5' 10 ) 08/30/2024 12:46 PM EST Body Mass Index 28.85 08/30/2024 12:46 PM EST Plan of Treatment Upcoming Encounters Date Type Department Care Team (Late st Contact Info) Description 10/31/2024 9:00 AM EDT Clinical Support [address] [phone] 11/21/2024 9:45 AM EDT Clinical Support [address] [phone] 12/19/2024 9:00 AM EDT Clinical Support [address] [phone] 02/27/2025 9:30 AM EDT Office Visit [address] [phone] Annalee Pace PA [address] [place] [address] Health Maintenance Due Date Last Done Comments Medicare Annual Wellness Visit 06/26/2022 COVID-19 Vaccine ( season) 2024 04/15/2023, 04/08/2022, 11/03/2021, Additional history exists Social Influencers of Health Screening 08/23/2025 08/23/2024 Falls Risk Assessment 08/30/2025 08/30/2024 Hypertension/CHF/CAD Annual BMP Blood Test 08/31/2025 08/31/2024, 12/06/2023, 12/06/2023 Depression Screening 09/13/2025 09/13/2024 DTaP,Tdap,and Td Vaccines (4 - Td or Tdap) 10/01/2025 10/02/2015, 02/02/2013, 03/12/2003 Cholesterol Screening (Lipid Panel) 08/31/2029 08/31/2024, 12/06/2023, 12/06/2023 Colorectal Cancer Screening: Colonoscopy 10/26/2033 10/27/2023 Hepatitis C Screening Completed 02/03/2013 Abdominal Aortic Aneurysm (AAA) Screen Completed 03/27/2015 Pneumococcal Vaccine: 50+ Years Completed 12/03/2015, 09/25/2014 Zoster Vaccines Completed 04/16/2020, 01/16, 01/28/2012 RSV Immunization Adult Patients Completed 07/05/2023 Influenza Vaccine Completed 03/14/2024, , 04/02/2022, Additional history exists HIB Vaccines Aged Out [...] on patient's age to complete this topic MMR Vaccines Aged Out No longer eligi ble based on patient's age to complete this topic Meningococcal ACWY Vaccine Aged Out N o longer eligible based on patient's age to complete this topic Meningococcal B Vaccine Aged Out No l onger eligible based on patient's age to complete this topic RSV Immunization Patients Under 20 months Aged Out No longer eligible based on patient's age to complete this topic Varicella Vaccines Aged Out No longer eligible based on patient's age to complete this topic Procedures Procedure Name Priority Date/Time Associated Diagnosis Comments PET CT SKULL TO MID THIGH SUBSEQUENT Routine 09/28/2024 5:28 PM EDT Malignant neoplasm of prostate (CMS/HCC) CBC WITH AUTO DIFFERENTIAL Routine 08/31/2024 8:33 AM EST B12 deficiency CBC AND DIFFERENTIAL Routine 08/31/2024 8:33 AM EST B12 deficiency LIPID PANEL WITH REFLEX TO DIRECT LDL Routine 08/31/2024 8:33 AM EST Other hyperlipidemia COMPREHENSIVE METABOLIC PANEL Routine 08/31/2024 8:33 AM EST Primary hypertension HEMOGLOBIN A1C Routine 08/31/2024 8:33 AM EST Prediabetes HM COLONOSCOPY Routine 10/27/2023 ABDOMINAL AORTIC ANEURYSM SCRREN Routine 03/27/2015 HEPATITIS C SCREENING Routine 02/03/2013 from Last 3 Months or Most Recently Relevant to Health Maintenance Results * PET CT Skull to Mid Thigh Subsequent (09/28/2024 5:28 PM EDT) Anatomical Region Laterality Modality Body Radiographic Pamella ging 10/10/2024 5:04 AM EDT Impressions 10/10/2024 5:54 AM EDT 1. ??Metabolic activity within the prostate gland which may represent recurrence 2. ??Nonspecific uptake similar to blood pool in the distal left para-aortic region. ??This may represent vessel/ganglion versus nonenlarged lymph node 3. ??Focal activity involving the right seventh rib which may represent metastatic disease -------- FINAL REPORT -------- Dictated By: Caroline Hameed Dictated Date: 10/10/2024 05:04 ET Assigned Physician: Caroline Hameed Reviewed and Electronically Signed By: Caroline Hameed Signed Date: 10/10/2024 05:54 ET Workstation ID: [id number] Transcribed By: Self Edit Transcribed Date: 10/10/2024 05:04 ET Narrative 10/10/2024 5:54 AM EDT HISTORY: Rising prostate-specific antigen, history of prior radiation and hormonal therapy for prostate carcinoma as well as radiation therapy for laryngeal carcinoma. PRIOR IMAGING STUDIES: None. RADIOPHARMACEUTICAL: 9.4 mCi F-18 piflufolastat IV INJECTION SITE: Right hand INJECTION TIME TO SCAN TIME: 66 min PROCEDURE: Routine body PET-CT imaging performed from the head to the upper thighs and reconstructed in axial, coronal, sagittal planes at the computer workstation with fused data from both the PET imaging study and attenuation correction CT study. Please note, CT imaging utilized strictly for attenuation correction and anatomic localization: CT not designed to produce and cannot replace ptjmm-mz-ebq-art true diagnostic CT examination with specific protocols. ??Standardized uptake values (SUV) normalized to patient body weight and indicate the highest active concentration (SUV max) in a given disease site. DLP: ??608 mGy-cm IMAGING FINDINGS: Reference Values SUV Max: Parotid: 12.5 Blood Pool: ??2.2 Liver: ??6.5 Expected pattern of physiological activity noted. HEAD AND NECK: 6 mm low-attenuation subcutaneous lesion along the right neck SUV max 11.4 favored to represent a sebaceous versus epidermoid cyst and less likely malignancy. Hypodensity in the right frontal lobe likely representing encephalomalacia from prior infarct. ??Retention cyst versus polyp in the right maxillary sinus without significant activity. No abnormal cervical lymphadenopathy demonstrating activity. THORAX: No abnormal thoracic or axillary activity. Bilateral pleural plaque formation (some of which is calcified) SUV max 1.2 on the left and 2.1 on the right; likely related to prior asbestosis exposure. Thoracic aortic and coronary artery calcifications. ??Mild bilateral gynecomastia. ABDOMEN/PELVIS: Brachytherapy seeds within the prostate gland SUV max 5.7. Nonspecific uptake along the distal left para-aortic region either representing a vessel/ganglion or nonenlarged lymph node SUV max 2.4. MUSCULOSKELETAL: Focal activity involving the right seventh rib SUV max 4.4. ??Focal area of faint sclerosis is noted at this level (series 4, image 124). Procedure Note Caroline Hameed MD - 10/10/2024 HISTORY: Rising prostate-specific antigen, history of prior radiation andhormonal therapy for prostate carcinoma as well as radiation therapy forlaryngeal carcinoma. PRIOR IMAGING STUDIES: None. RADIOPHARMACEUTICAL: 9.4 mCi F-18 piflufolastat IV INJECTION SITE: Right hand INJECTION TIME TO SCAN TIME: 66 min PROCEDURE: Routine body PET-CT imaging performed from the head to the upper thighsand reconstructed in axial, coronal, sagittal planes at the computerworkstation with fused data from both the PET imaging study andattenuation correction CT study. Please note, CT imaging utilized strictlyfor attenuation correction and anatomic localization: CT not designed toproduce and cannot replace dauwa-[id number]-art true diagnostic CT examinationwith specific protocols. Standardized uptake values (SUV) normalized topatient body weight and indicate the highest active concentration (SUVmax) in a given disease site. DLP: 608 mGy-cm IMAGING FINDINGS: Reference Values SUV Max: Parotid: 12.5 Blood Pool: 2.2 Liver: 6.5 Expected pattern of physiological activity noted. HEAD AND NECK: 6 mm low-attenuation subcutaneous lesion along the rightneck SUV max 11.4 favored to represent a sebaceous versus epidermoid cystand less likely malignancy. Hypodensity in the right frontal lobe likely representing encephalomalaciafrom prior infarct. Retention cyst versus polyp in the right maxillarysinus without significant activity. No abnormal cervical lymphadenopathy demonstrating activity. THORAX: No abnormal thoracic or axillary activity. Bilateral pleural plaque formation (some of which is calcified) SUV max1.2 on the left and 2.1 on the right; likely related to prior asbestosisexposure. Thoracic aortic and coronary artery calcifications. Mild bilateralgynecomastia. ABDOMEN/PELVIS: Brachytherapy seeds within the prostate gland SUV max5.7. Nonspecific uptake along the distal left para-aortic region eitherrepresenting a vessel/ganglion or nonenlarged lymph node SUV max 2.4. MUSCULOSKELETAL: Focal activity involving the right seventh rib SUV max4.4. Focal area of faint sclerosis is noted at this level (series 4,image 124). IMPRESSION: 1. Metabolic activity within the prostate gland which may representrecurrence 2. Nonspecific uptake similar to blood pool in the distal leftpara-aortic region. This may represent vessel/ganglion versus nonenlargedlymph node 3. Focal activity involving the right seventh rib which may representmetastatic disease -------- FINAL REPORT -------- Dictated By: Caroline Hameed Dictated Date: 10/10/2024 05:04 ET Assigned Physician: Caroline Hameed Reviewed and Electronically Signed By: Caroline Hameed Signed Date: 10/10/2024 05:54 ET Workstation ID: [id number] Transcribed By: Self Edit Transcribed Date: 10/10/2024 05:04 ET us Alessandro Al MD [facility] PROCEDURES Final Resul t * (ABNORMAL) Lipid panel with reflex to direct LDL (08/31/2024 8:33 AM EST) Pathologist [facility] Cholesterol 211(H) 0 - 200 mg/dL LAB CHEMISTRY METHOD 08/31/2024 10:26 AM EST [facility] Triglycerides 182(H) 0 - 150 mg/dL LAB CHEMISTRY METHOD 08/31/2024 10:26 AM EST [facility] HDL 61 >=40 mg/dL LAB CHEMISTRY METHOD 08/31/2024 10:26 AM [facility] LDL Calculated 114(H) 0 - 100 mg/dL LAB CHEMISTRY METHOD 08/31/2024 10:26 AM [facility] VLDL Cholesterol Spencer 36.4 mg/dL LAB CHEMISTRY METHOD 08/31/2024 10:26 AM [facility] Non HDL Chol. (LDL+VLDL) 150(H) <145 mg/dL LAB CHEMISTRY METHOD 08/31/2024 10:26 AM [facility] Chol/HDL Ratio 3.5 0.0 - 4.4 LAB CHEMISTRY METHOD 08/31/2024 10:26 AM [facility] Blood Venous blood specimen / Unknown Venipuncture / Unknown 08/31/2024 8:33 AM EST 08/31/2024 8:33 AM EST us Eleanor Hawley MD LAB BLOOD ORDERABLES Final Resul t [facility] [address] [place] [address], [place] [phone] * (ABNORMAL) CBC auto differential (08/31/2024 8:33 AM EST) WBC 5.4 4.8 - 10.8 K/mcL LAB HEMETOLOGY METHOD 08/31/2024 10:06 AM [facility] RBC 4.30(L) 4.50 - 5.50 M/mcL LAB HEMETOLOGY METHOD 08/31/2024 10:06 AM [facility] Hemoglobin 13.7 13.5 - 17.5 g/dL LAB HEMETOLOGY METHOD 08/31/2024 10:06 AM [facility] Hematocrit 41.8(L) 42.0 - 54.0 % LAB HEMETOLOGY METHOD 08/31/2024 10:06 AM [facility] MCV 97.7 79.0 - 98.0 FL LAB HEMETOLOGY METHOD 08/31/2024 10:06 AM [facility] MCH 32.0 27.0 - 32.0 pcg LAB HEMETOLOGY METHOD 08/31/2024 10:06 AM [facility] MCHC 32.8 32.0 - 37.0 g/dL LAB HEMETOLOGY METHOD 08/31/2024 10:06 AM [facility] RDW 13.0 11.0 - 15.0 % LAB HEMETOLOGY METHOD 08/31/2024 10:06 AM [facility] Platelets 293 130 - 400 K/mcL LAB HEMETOLOGY METHOD 08/31/2024 10:06 AM [facility] MPV 8.7 7.0 - 11.0 FL LAB HEMETOLOGY METHOD 08/31/2024 10:06 AM [facility] NRBC 0.0 <1.0 % LAB HEMETOLOGY METHOD 08/31/2024 10:06 AM [facility] NRBC Absolute 0.00 <0.10 K/mcL LAB HEMETOLOGY METHOD 08/31/2024 10:06 AM [facility] Neutrophils Relative 59.9 % LAB HEMETOLOGY METHOD 08/31/2024 10:06 AM [facility] Lymphocytes Relative 25.9 % LAB HEMETOLOGY METHOD 08/31/2024 10:06 AM [facility] Monocytes Relative 11.0 % LAB HEMETOLOGY METHOD 08/31/2024 10:06 AM [facility] Eosinophils Relative 2.2 % LAB HEMETOLOGY METHOD 08/31/2024 10:06 AM [facility] Basophils Relative 0.6 % LAB HEMETOLOGY METHOD 08/31/2024 10:06 AM [facility] Immature Granulocytes Relative 0.4 % LAB HEMETOLOGY METHOD 08/31/2024 10:06 AM [facility] Neutrophils Absolute 3.26 1.50 - 7.00 K/mcL LAB HEMETOLOGY METHOD 08/31/2024 10:06 AM [facility] Lymphocytes Absolute 1.41 1.00 - 5.00 K/mcL LAB HEMETOLOGY METHOD 08/31/2024 10:06 AM [facility] Monocytes Absolute 0.60 0.20 - 1.00 K/mcL LAB HEMETOLOGY METHOD 08/31/2024 10:06 AM [facility] Eosinophils Absolute 0.12 0.00 - 0.50 K/mcL LAB HEMETOLOGY METHOD 08/31/2024 10:06 AM [facility] Basophils Absolute 0.03 0.00 - 0.20 K/mcL LAB HEMETOLOGY METHOD 08/31/2024 10:06 AM [facility] Immature Granulocytes Absolute 0.02 0.00 - 0.03 K/mcL LAB HEMETOLOGY METHOD 08/31/2024 10:06 AM [facility] Blood Venous blood specimen / Unknown Venipuncture / Unknown 08/31/2024 8:33 AM EST 08/31/2024 8:33 AM EST us Eleanor Hawley MD LAB BLOOD ORDERABLES Final Resul t [facility] [address] [place] [address], * Hemoglobin A1c (08/31/2024 8:33 AM EST) Hemoglobin A1C 5.8 <6.5 % LAB CHEMISTRY METHOD 08/31/2024 11:25 AM EST [facility] Mean Bld Glu Estim. 120 mg/dL LAB CHEMISTRY METHOD 08/31/2024 11:25 AM [facility] Blood Venous blood specimen / Unknown Venipuncture / Unknown 08/31/2024 8:33 AM EST 08/31/2024 8:33 AM EST us Eleanor Hawley MD LAB BLOOD ORDERABLES Final Resul t [facility] [address] [place] [address], [place] [phone] * (ABNORMAL) Comprehensive metabolic panel (08/31/2024 8:33 AM EST) Sodium 134 133 - 145 mmol/L LAB CHEMISTRY METHOD 08/31/2024 10:26 AM [facility] Potassium 4.6 3.5 - 5.5 mmol/L LAB CHEMISTRY METHOD 08/31/2024 10:26 AM [facility] Chloride 101 96 - 110 mmol/L LAB CHEMISTRY METHOD 08/31/2024 10:26 AM [facility] CO2 29 21 - 32 mmol/L LAB CHEMISTRY METHOD 08/31/2024 10:26 AM [facility] Anion Gap 4 3 - 11 LAB CHEMISTRY METHOD 08/31/2024 10:26 AM [facility] Glucose 109(H) 70 - 100 mg/dL LAB CHEMISTRY METHOD 08/31/2024 10:26 AM [facility] BUN 14 5 - 25 mg/dL LAB CHEMISTRY METHOD 08/31/2024 10:26 AM [facility] Creatinine 0.93 0.70 - 1.30 mg/dL LAB CHEMISTRY METHOD 08/31/2024 10:26 AM [facility] eGFR 86 >=60 mL/min/1. 73m2 LAB CHEMISTRY METHOD 08/31/2024 10:26 AM [facility] Comment:Calculation based on the??Chronic Kidney Disease Epidemiology Collaboration (CKD-EPI) equation refit??without adjustment for race. BUN/Creatinine Ratio 15.1 LAB CHEMISTRY METHOD 08/31/2024 10:26 AM [facility] Calcium 8.8 8.5 - 10.5 mg/dL LAB CHEMISTRY METHOD 08/31/2024 10:26 AM [facility] AST (SGOT) 17 10 - 42 unit/L LAB CHEMISTRY METHOD 08/31/2024 10:26 AM [facility] ALT (SGPT) 29 10 - 60 unit/L LAB CHEMISTRY METHOD 08/31/2024 10:26 AM [facility] Alkaline Phosphatase 71 42 - 121 unit/L LAB CHEMISTRY METHOD 08/31/2024 10:26 AM [facility] Total Protein 6.8 6.0 - 8.0 g/dL LAB CHEMISTRY METHOD 08/31/2024 10:26 AM [facility] Albumin 3.7 3.2 - 5.0 g/dL LAB CHEMISTRY METHOD 08/31/2024 10:26 AM [facility] Total Bilirubin 0.4 0.0 - 1.4 mg/dL LAB CHEMISTRY METHOD 08/31/2024 10:26 AM [facility] Blood Venous blood specimen / Unknown Venipuncture / Unknown 08/31/2024 8:33 AM EST 08/31/2024 8:33 AM EST Eleanor Hawely MD LAB BLOOD ORDERABLES Final Resul t [facility] [address] [place] [address], [place] [phone] * Colonoscopy (10/27/2023) Colonoscopy No interpretation , abstracted Anatomical Region Laterality Modality Other us Historical Provider HEALTH MAINTENANCE Final Result * Abdominal Aortic Aneurysm Screen (03/27/2015) Abdominal Aortic Aneurysm (AAA) Screening Abstracted Anatomical Region Laterality Modality Other Historical Provider HEALTH MAINTENANCE Final Result * Hepatitis C Screening (02/03/2013) Hepatitis C Screening Abstracted us Historical Provider HEALTH MAINTENANCE Final Result from Last 3 Months or Most Recently Relevant to Health Maintenance Insurance MEDICARE [facility] Care Teams Pelletizer Relationship Specialty Start Date End Date Elaenor Hawley MD [address] [place] [address] PCP - General Internal Medicine 01/15/20
--- OUTSIDE RECORDS SUMMARY | 2024-10-23 09:50 | XMS_ITS | Encounter Summary ---
Author Organization [facility] Address [address] [place] [address] Care Team Providers Care Associate Merchandise Planner Name Role Phone Eleanor Hawley MD Primary Care Provider [phone] Encounter Details Date Type Department Care Team Description 03/01/2022 Pt. Referral Request [facility] MyChart [address] [place] [address] Md Ambrosio Social History Tobacco Use Types [...] on filedocumented in this encounter Care Teams Associate Merchandise Planner Relationship Specialty Start Date End Date Eleanor Hawley MD [address] [place] [address] PCP - General Internal Medicine 01/15/20 documented as of this encounter
--- OUTSIDE RECORDS SUMMARY | 2024-10-23 09:50 | XMS_ITS | Encounter Summary ---
Author Organization [facility] Address [address] [place] [address] Care Team Providers Care Drafter Seismograph Name Role Phone Mk Lechuga MD Primary Care Provider Unavail able Eleanor Hawley MD Primary Care Provider [phone] Reason for Visit * Reason Onset Date Comments medication problems 12/08/2016 Encounter Details Date Type Department Care Team Description 12/08/2016 Telephone Adult Medicine [address] [address] Mk Lechuga MD medication problems Social History Tobacco Use Types Packs/Day Years [...] encounter Miscellaneous Notes * Telephone Encounter - Mk Lechuga MD - 12/08/2016 5:03 PM EDT Medication sent to [facility] * Telephone Encounter - Maite Ralph - 12/08/2016 4:34 PM EDT Spoke to patient , he is worried now that he is out of the medication, he called [facility] today and they did not have the refill that we sent on 12/06/16. Amlodipine 5mg and lisinopril 5 mg needs to be for 90 day supply and with refill sent today, I called and spoke to Dr. Lechuga and he said he would do this for this patient, I told this to the patient. Thank you. * Telephone Encounter - Mine Sadler - 12/08/2016 4:19 PM EDT FYI to PCP... Pt booked an appt for 12/16/16 for a med review. Please reference encounter from earlier today. documented in this encounter Plan of Treatment Not on file documented as of this encounter Visit Diagnoses Not on filedocumented in this encounter Care Teams Drafter Seismograph Relationship Specialty Start Date End Date Mk Lechuga MD PCP - General Internal Medicine 03/26/15 01/14/20 Eleanor Hawley MD [address] [place] [address] PCP - General Internal Medicine 01/15/20 documented as of this encounter
--- OUTSIDE RECORDS SUMMARY | 2024-10-23 09:50 | XMS_ITS | Encounter Summary ---
Author Organization [facility] Address [address] [place] [address] Care Team Providers Care Time Study Clerk Name Role Phone Mk Lechuga MD Primary Care Provider Unavail able Eleanor Hawley MD Primary Care Provider [phone] Encounter Details Date Type Department Care Team Description 12/05/2015 Business Doc Medical Records [address] [place] [address] Abstract, Provider Social History Tobacco Use Types [...] on filedocumented in this encounter Care Teams Time Study Clerk Relationship Specialty Start Date End Date Mk Lechuga MD PCP - General Internal Medicine 03/26/15 01/14/20 Eleanor Hawley MD [address] [place] [address] PCP - General Internal Medicine 01/15/20 documented as of this encounter
--- OUTSIDE RECORDS SUMMARY | 2024-10-23 09:50 | XMS_ITS | Encounter Summary ---
Author Organization [facility] Address [address] [place] [address] Care Team Providers Care Capacitor Tester Name Role Phone Mk Lechuga MD Primary Care Provider Unavail able Eleanor Hawley MD Primary Care Provider [phone] Encounter Details Date Type Department Care Team Description 02/01/2017 [employer] Dean Report Medical Records [address] [place] [address] Alessandro Al MD Social History Tobacco Use [...] on filedocumented in this encounter Care Teams Capacitor Tester Relationship Specialty Start Date End Date Mk Lechuga MD PCP - General Internal Medicine 03/26/15 01/14/20 Eleanor Hawley MD [address] [place] [address] PCP - General Internal Medicine 01/15/20 documented as of this encounter
[2024-10-23 11:21] LABS: Prostate Specific Antigen 2.07 ng/mL (<0.05-4.0)
== END 2024-10-23 09:01 | disposition home or self-care (01) ==
LOC: HO.HMGCLDS 09:00
PROVIDERS: PCP Internal Medicine; Visit Provider Urology
DX: R97.21 Rising PSA following treatment for malignant neoplasm of prostate (principal); Z12.5 Encounter for screening for malignant neoplasm of prostate
CPT/HCPCS: 36415; 84153

== ENCOUNTER 2024-10-30 09:26 | Outpatient (AMB) | payer OTHER, SELFPAY ==
--- NOTE | 2024-10-30 09:28 | A.OFFVIS_ITS ---
Intake Visit Reasons: 6m/ CT/ PSA Intake Note: Patient is present for 6M/CT/PSA Urology Medication:TAMSULOSIN,GABAPENTIN,TADALAFIL Antibiotic Allergy:NONE Blood Thinner:NONE Emergency Communications Operator Required: No Allergies No Known Allergies Allergy (Verified 10/30/24 09:29) HPI Comments Details: Mk SORIA is a very pleasant male. He is a patient of Dr Hawley. He is seen for the following urologic conditions. 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 PSA 08/07 PSA < 0.5, T 28, 09/07 0.2, T 115, 03/07 <0.1, T 17, 07/07 <0.1 112, 12/06 <0.1 120, 04/08 0.4 T 300, 08/09 0.7, 12/07 0.6, 06/09 0.72, 12/08 0.9, 07/10 1.8, 11/09 2.1 Prostate cancer: [place] 8, group 4. Initial treatment radiation with hormone therapy completed December 2019 Prostate cancer was diagnosed 09/06 Dr Al Diagnosis was reached by 08/06 needle biopsy, for elevated PSA, PSA at diagnosis PSA 16 Prior PSA Feb 2017 4.8 - 09/04 4.8 - started finasteride 07/05 16 Odilia grade is ten of twelve cores - 4+4 = 8 5%, , 4+3 = 7, 3+4 = 7 - multicore, high volume 50% of all total course and total volume. TNM Classification of Malignant Tumours (TNM) T1c. The D'Josemanuel (NCCN) risk category is High Risk (PSA > 20, Gl 8+, T3). Initial therapy included Primary treatment - primary therapy external beam therapy with 18 months GnRH/bicalutamide/finasteride - [facility] 01/04 - Dr Stovall - Last GnRH 03/07 Recent imaging included 09/06 , a bone scan negative 09/06 , a CT (computed tomography) scan negative. [facility]LY [facility], [facility] Medical History Hyperlipidemia Elevated PSA Glaucoma Erectile dysfunction Arthritis Chronic prostatitis Surgical History History of hand surgery Family History Father No problems noted. Mother Breast cancer Review of Systems Const Denies chills and Denies fever(s) Card Reports no additional complaints and Denies syncope Resp Denies cough GI Denies abdominal pain and Denies heartburn Reports as per HPI and Denies change in libido Neuro Denies syncope Psych Denies change in libido Endo Denies change in libido Physical Exam Const General: cooperative, healthy appearing, comfortable and no acute distress Orientation/consciousness: patient oriented x3 HEENT Face and sinus: Yes normal facial exam Mouth: moist mucous membranes Neck Neck: Yes normal visual inspection, Yes full ROM and Yes trachea midline Chest Chest palpation & inspection: normal inspection of the chest Resp Effort & Inspection: normal respiratory effort, able to speak in complete sentences and no respiratory distress GI Inspection: Yes normal to inspection Back/Spine/Pelvis Cervical Spine: normal cervical lordosis Thoracic/Lumbar Spine: thoracic and lumbar spine normal to inspection Skin General skin exam: no rashes or lesions noted Neuro General: patient oriented x3, gait normal, tone normal and moves all extremities Extrem General: Yes normal to inspection and Yes capillary refill normal Results AMB Urinalysis, Automated UA Leukoctes 0 Zachery/uL Last Edit by MIKE Dailey on 10/30/24 09:41 UA Nitrite Negative Last Edit by MIKE Dailey on 10/30/24 09:41 UA Urobilinogen 0.2 mg/dL Last Edit by MIKE Dailey on 10/30/24 09:4 1 UA Protein 15 mg/dL Last Edit by MIKE Dailey on 10/30/24 09:41 UA pH 6.0 Last Edit by MIKE Dailey on 10/30/24 09:41 UA Blood 0 Abdi/uL Last Edit by MIKE Dailey on 10/30/24 09:41 UA Specific [place] 1.020 Last Edit by MIKE Dailey on 10/30/24 09: 41 UA Ketone Negative Last Edit by MIKE Dailey on 10/30/24 09:41 UA Bilirubin 0 mg/dL Last Edit by MIKE Dailey on 10/30/24 09:41 UA Glucose 0 mg/dL Last Edit by MIKE Dailey on 10/30/24 09:41 Assessment & Plan Assessment & Plan (1) Prostate cancer: Comment: High-grade prostate cancer August 2019 initial therapy external beam radiation with 2 years hormone therapy Code(s): C61 - Malignant neoplasm of prostate Category: Medical (2) Rising PSA following treatment for malignant neoplasm of prostate: Code(s): R97.21 - Rising PSA following treatment for malignant neoplasm of prostate Category: Medical Plan Six-month follow-up PSA Orders: Orders AMB Urinalysis Automated Today Z13.9 - Encounter for screening, unspecified Testosterone, Total 6 Months R97.21 - Rising PSA following treatment for malignant neoplasm of prostate Prostate Specific Antigen 6 Months R97.21 - Rising PSA following treatment for malignant neoplasm of prostate Patient Instructions: This note is constructed using voice recognition software. While every effort has been made to ensure accuracy car top bolter errors may have been included. Imaging studies, laboratory and physical exam results were discussed and reviewed in detail. No major barriers to patient understanding were identified. An opportunity to ask questions regarding the treatment plan was provided. All questions were answered. The patient expressed understanding and agreement with the above treatment plan. The patient is aware they should contact our office by phone for worsening of their current condition or the appearance of new urologic symptoms. Compliance is encouraged with any medications and followup testing that is ordered. It is a privilege to participate in the urologic care of your patient. If you have any questions or concerns regarding treatment for the above conditions, or other urologic issues, please do not hesitate to contact me. The office telephone contact is [phone]. Sincerely, Dr Alessandro Al MD, [facility] - Urology Compassionate Specialist Care for the Genitourinary System Coding Level of Care Code Est Pt Level 4 (25787) Complex EM visit Add On G2211 Diagnoses Prostate cancer C61 Rising PSA following treatment for malignant neoplasm of prostate R97.21
--- OUTSIDE RECORDS SUMMARY | 2024-10-30 10:33 | XMS_ITS | Clinical Summary ---
Author Organization [facility] Address [address] [place] [address] Care Team Providers Care Fire Management Specialist Name Role Phone Unavailable Primary Care Provider [...]
--- OUTSIDE RECORDS SUMMARY | 2024-10-30 10:33 | XMS_ITS | Data Portability ---
Author Organization [place] [facility] Address [address] [place] [id number] Care Team Providers Care Computed Tomography Technician Name Role Phone PRIMOTRISTAN Primary Care Provider [phone] Assessment No assessment recorded. Plan of Treatment Reminders Order Date Submit Date Provider Last Modified By Organization Details Last Modified Time Details Appointments Establish ed 30 2024 02:00P M TITO Blanco MD Not available Not available Not available Lab None recorded. Referral None recorded. Procedures None recorded. Surgeries None recorded. Imaging None recorded. Medication Orders None recorded. Patient TargetsNo targets recorded. Patient InstructionsNo instructions recorded. Reason for Referral None Reported. Results Created Date Observation Date Name Description Value Unit Range Abnormal Flag Note LastModifiedBy Organization Detail LastModifiedTime 03/07/20 24 10/11/2022 imagi ng/di agnos tic resul t No observ ation record ed. [email or web address] Not Available 00:11:13 03/07/20 24 12/01/2021 imagi ng/di agnos tic resul t No observ ation record ed. [email or web address] Not Available 00:11:24 03/07/20 24 12/01/2021 imagi ng/di agnos tic resul t No observ ation record ed. [email or web address] Not Available 00:11:25 03/07/20 24 04/01/2021 imagi ng/di agnos tic resul t No observ ation record ed. [email or web address] Not Available 00:12:37 03/07/20 24 04/17/2021 imagi ng/di agnos tic resul t No observ ation record ed. [email or web address] Not Available 00:12:45 03/07/2004/17/2021 imagi ng/di agnos tic resul t No observ ation record ed. [email or web address] Not Available 00:12:51 03/07/2005/06/2021 imagi ng/di agnos tic resul t No observ ation record ed. [email or web address] Not Available 00:13:12 03/07/2005/06/2021 imagi ng/di agnos tic resul t No observ ation record ed. [email or web address] Not Available 00:13:15 Result Notes None recorded. Problems Name Problem SNOMED Code Status Onset Date Resolution Date Notes Provider Name and Address Organization Details Recorded Time Disorder of vocal cord 28261206 Active 2021 Leukoplak ia of vocal cords; Note: Date Diagnosed : 2 4:58 PM (J38.3) Not Available On license of [facility] 4 03:03:45 Dysphonia 65364287 Active 2020 Hoarsenes s; Note: Date Diagnosed : 03/05/2021 4:12 PM (R49.0) Not Available On license of [facility] 4 03:03:44 Follow-up visit Active 2022 Encounter for follow-up examinati on after completed treatment for malignant neoplasm; Note: Date Diagnosed : 02/18/2023 2:18 PM (Z08) Not Available On license of [facility] 4 03:03:44 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; Note: Date Diagnosed : 10/04/2022 11:31 AM (C32.0) Not Available On license of [facility] 4 03:03:44 Malignant tumor of larynx 215627905 Active 2022 Malignant neoplasm of larynx; Note: Date Diagnosed : 09/24/2022 3:15 PM (C32) Not Available On license of [facility] 4 03:03:43 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 , unilatera l, complete; Note: Date Diagnosed : 9:01 AM (478.32) Not Available [facility] 03:03:46 History of malignant neoplasm of larynx 980317633 Active 2022 Personal history of malignant neoplasm: Larynx; Note: Date Diagnosed : 02/18/2023 2:18 PM (V10.21) Persona l history of malignant neoplasm of larynx; Note: Date Diagnosed : 02/18/2023 2:18 PM (Z85.21) Not Available [facility] 4 03:03:45 Chronic hoarsenes s 11162119543 05 Active 2023 TITO GERMAIN MD [address] [place] [address], [place], [address] , [place] - [facility] 4 11:04:35 Perennial allergic rhinitis 509135191 Active 2023 TITO GERMAIN MD [address] [place] [address], [place], [address] , [place] - [facility] 4 11:07:11 Nasal congestio n 47682264 Active 2023 Nasal congestio n; Note: Date Diagnosed : 09/15/2023 9:02 AM (R09.81) Not Available On license of [facility] 03:03:43 Problem Notes None recorded. Procedures Surgical History Date Name Laterality Status Provider Name and Address Organization Details Recorded Time 09/12/2024 FFL_RE completed TITO GERMAIN MD [address] [place] [address],[address], [address], [place] - [facility] 09/12/2024 09:04:02 05/08/2024 FFL_RE completed TITO GERMAIN MD [address] [place] [address], [phone], [place] - [facility] 05/08/2024 09:37:19 01/02/2024 FFL_RE completed TITO GERMAIN MD [address] [place] [address],[address], [address], [place] - [facility] 01/02/2024 11:13:04 Imaging Results Imaging Date Name Status LastModified by Organiz [facility] Details LastModified Time 10/11/2022 imaging/diag nostic result completed Information not available 03/07/2024 00:11:13 12/01/2021 imaging/diag nostic result completed Information not available 03/07/2024 00:11:24 12/01/2021 imaging/diag nostic result completed Information not available 03/07/2024 00:11:25 04/01/2021 imaging/diag nostic result completed Information not available 03/07/2024 00:12:37 04/17/2021 imaging/diag nostic result completed Information not available 03/07/2024 00:12:45 04/17/2021 imaging/diag nostic result completed Information not available 03/07/2024 00:12:51 05/06/2021 imaging/diag nostic result completed Information not available 03/07/2024 00:13:12 05/06/2021 imaging/diag nostic result completed Information not available 03/07/2024 00:13:15 Procedure Notes None recorded. Medical Equipment None Reported. Medications Name Sig Start Date Stop Date Status Note LastModified by Organization Details LastModified Time tizanidine 4 mg tablet TAKE 1 TABLET BY MOUTH EVERY 8 HOURS NEEDED FOR MUSCLE SPASM FOR UP TO 10 DAYS active Not Available Not Available No t Available amlodipine 5 mg tablet active Not Available Not Available Not Available sildenafil 100 mg tablet active Not Available Not Available Not Available tamsulosin 0.4 mg capsule active Not Available Not Available Not Available lisinopril 10 mg tablet active Not Available Not Available Not Available gabapentin 300 mg capsule active Not Available Not Available Not Available bisacodyl 5 mg tablet,del ayed release TAKE 2 TABLETS BY MOUTH RIGHT BEFORE BEGINNING BOWEL PREP. FOLLOW INSTRUCTI ONS GIVEN BY OFFICE FOR TIMING. active Not Available Not Available No t Available pravastati n 20 mg tablet active Not Available Not Available Not Available finasterid e 5 mg tablet active Medicatio n ID: [id number] Br and Name: toño palm Send Method: E-Prescri bed Subs Allowed: subs OK Medica tionGener icName: toño palm Not Available Not Available Not Available naproxen 500 mg tablet TAKE 1 TABLET BY MOUTH TWICE DAILY WITH MEALS active Not Available Not Available No t Available dorzolamid e 2 % eye drops INSTILL 1 DROP INTO EACH EYE TWICE DAILY active Not Available Not Available No t Available tadalafil 5 mg tablet active Not Available Not Available Not Available peg 3350-elect rolytes 236 gram-22.74 gram-6.74 gram-5.86 gram solution MIX THEN STARTING AT 6 PM THE NIGHT BEFORE YOUR PROCEDURE , DRINK 8 OUNCE GLASSES BY MOUTH AT YOUR OWN PACE UNTIL RECTALS RUN CLEAR. active Not Available Not Available No t Available Combigan 0.2 %-0.5 % eye drops active Not Available Not Available Not Available Rocklatan 0.02 %-0.005 % eye drops active Not Available Not Available No t Available Vitals Date Recorded Body height Body mass index (BMI) Body weight Provider Name and Address Organization Details Last Updated DateTime 05/08/2024 175.26 cm 27.3 kg/m2 11806.59 g Silke Snow [place] [facility] 05/08/2024 09:02:45 Date Recorded Body height Body mass index (BMI) Body weight Provider Name and Address Organization Details Last Updated DateTime 09/12/2024 175.26 cm 27.3 kg/m2 87458.59 g iSlke Snow [facility] 09/12/2024 08:55:54 Date Recorded Body height Body mass index (BMI) Body weight Provider Name and Address Organization Details Last Updated DateTime 01/02/2024 175.26 cm 27.3 kg/m2 02787.59 g Silke Snow [facility] 01/02/2024 10:55:58 Social History None recorded. Functional Status None recorded. Mental Status None recorded. Family History Nothing Reported. Medical History No medical history recorded. Past Encounters Encounter ID Performer Location Encounter Start Date Encounter Closed Date Diagnosis/Indication Diagnosis SNOMED-CT Code Diagnosis ICD10 Code Diagnosis Note [id number] TITO GERMAIN MD [facility] [address] [place] [address] 01/02/2024 10:06:25 01/02/2024 11:17:49 History of malignant neoplasm of larynx 224779574 Z85.21 Exam and Laryngosco py showed no evidence of disease. We will continue routine surveillan ce in 4 months. Chronic hoarseness 20840 01696 105 R49.0 Likely post treatment. Recommend hydration. Perennial allergic rhinitis 440178936 J30.89 Discussed allergy testing but he was not interested today. I discussed performing testing in the future if he did not improve. [id number] TITO GERMAIN MD [facility] [address] [address] 05/08/2024 08:56:17 05/08/2024 09:18:34 History of malignant neoplasm of larynx 997942207 Z85.21 Exam and Laryngosco py showed no evidence of disease. We will continue routine surveillan ce in 4 months. Chronic hoarseness 55837 32480 105 R49.0 Likely post treatment. Recommend hydration. Perennial allergic rhinitis 400899523 J30.89 [place] [id number] TITO GERMAIN MD [facility] [address] [address] 09/12/2024 08:45:39 09/12/2024 09:11:27 History of malignant neoplasm of larynx 817382914 Z85.21 Exam and Laryngosco py showed no evidence of disease. We will continue routine surveillan ce in 4 months. Chronic hoarseness 57512 54893 105 R49.0 Likely post treatment. Recommend hydration. Screening for malignant neoplasm of respiratory tract 618064667 Z12.2 Exam and Laryngosco py showed no evidence of disease. We will continue routine surveillan ce. Health Concerns Section Related Observation LastModified by Organization Detai ls LastModified Time None Recorded Concern Status LastModified by Organization Details LastModified Time None Recorded Advance Directives Directive None Recorded Payers Encounter Date Sequence Insurance Name Policy Number Policy Erickson Covered Member ID Erickson Member ID Guarantor Name 01/02/2024 1 [facility] - [facility] (POS) [id number] Mk Foster [id number] Mk Foster 05/08/2024 1 [facility] HE[facility] PLAN - FAMILY HE[employer] PLAN (POS) [id number] Mk Foster [id number] Mk Foster 09/12/2024 1 [facility] HEALTH 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 He denies pain and has occasional hoarseness. He has had worse allergies this season. He denies dysphagia. Uses afrin PRN. 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 He denies pain and has occasional hoarseness. He has had worse allergies this season. He denies dysphagia. Uses afrin PRN. 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 He denies pain and has occasional hoarseness. He has had worse allergies this season. He denies dysphagia. TITO GERMAIN MD [address] [place] [address], [phone], [place] [facility] 09/12/2024 09:10:53
--- OUTSIDE RECORDS SUMMARY | 2024-10-30 10:33 | XMS_ITS | Clinical Summary ---
Author Organization [employer] Address [address] [facility] [address] [place] [address] Care Team Providers Care Sba Business Development Officer Name Role Phone Unavailable Primary Care Provider [...]
--- OUTSIDE RECORDS SUMMARY | 2024-10-30 10:33 | XMS_ITS | Clinical Summary ---
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 Al, s/p Rt and jeovany Odilia 8 Erectile dysfunction 03/27/2015 Hyperlipidemia 03/26/2015 Ingrown right big toenail 03/26/2015 Overview (05/02/2024): Partial nail avulsion, 04/01/2014 Arthritis of big toe 05/31/2011 Skull fracture ([facility] V24, [facility] V28) 2008 Overview (05/02/2024): Drinking alcohol and fell down stairs and had skull fracture with frontal lobe hematoma October 2007. Still with some decreased hearing Alcohol abuse 06/20/2006 Overview (05/02/2024): 20-30 beers per week Glaucoma 06/20/2006 Hypertension 06/20/2006 Encounters Date Type Department Care Team Description 09/28/2024 2:56 PM EDT - 09/28/2024 11:59 PM EDT Hospital Encounter [facility] PET Scan [address] [place] [address] Malignant neoplasm of prostate ([facility] V24, [facility] V28) Discharge Disposition: Home or Self Care 09/19/2024 1:30 PM EST Clinical Support Adult [address] [address] B12 deficiency (Primary Dx) 08/30/2024 1:15 PM EST Office Visit Adult [address] [address] Eleanor Hawley MD Prediabetes (Primary Dx); Primary hypertension; Other hyperlipidemia; B12 deficiency; Glaucoma of both eyes, unspecified glaucoma type 08/22/2024 4:15 PM EST Clinical Support [address] [address] B12 deficiency (Primary Dx) from Last 3 [...] Right : trauma to arm HAND SURGERY 2018 Right trigger finger Medical History Medical History Date Comments Essential hypertension, benign 06/20/2006 Unspecified glaucoma(365.9) 06/20/2006 Alcohol abuse, unspecified 06/20/2006 Prostate cancer ([facility] V24 , [facility] V28) B12 deficiency 12/16/2020 Prediabetes 04/17/2019 Arthritis of big toe 05/31/2011 Skull fracture ([facility] V24, [facility] V28) 09/18/2008 Drinking alcohol and fell do wn stairs and had skull fracture with frontal lobe hematoma October 2007. Still with some decreased hearing Vocal cord cancer ([facility] V 24, [facility] V28) 07/05/202210/07 well differentiated squ amous cell carcinoma of the right vocal cord/ [...] Record ed Within the last 3 months, cecilia lloyd many times did you visit the emergency [...] care for your loved ones. For example, child welfare social worker or elderly care for an older adult? [...] Description 10/31/2024 9:00 AM EDT Clinical Support Adult [address] [address] 11/21/2024 9:45 AM EDT Clinical Support [address] [address] 12/19/2024 9:00 AM EDT Clinical Support [address] [address] 02/27/2025 9:30 AM EDT Office Visit Adult [address] [phone] Annalee Pace PA [address] [place] [address] Health Maintenance Due Date Last Done Comments [...] 5:28 PM EDT Malignant neoplasm of prostate (CMS/HCC V24, CMS/HCC V28) CBC WITH AUTO DIFFERENTIAL Routine 08/31/2024 8:33 AM EST B12 deficiency CBC AND DIFFERENTIAL Routine 08/31/2024 8:33 AM EST B12 deficiency LIPID PANEL WITH REFLEX TO DIRECT LDL Routine 08/31/2024 8:33 AM EST Other hyperlipidemia COMPREHENSIVE METABOLIC PANEL Routine 08/31/2024 8:33 AM EST Primary hypertension HEMOGLOBIN A1C Routine 08/31/2024 8:33 AM EST Prediabetes COLONOSCOPY Routine 10/27/2023 ABDOMINAL AORTIC ANEURYSM SCRREN [...] Signed Date: 10/10/2024 05:54 ET Workstation ID: [id number] Transcribed By: Self Edit Transcribed Date: 10/10/2024 [...] not designed to produce and cannot replace xtniz-wh-tsh-art true diagnostic CT examination with specific protocols. [...] CT not designed toproduce and cannot replace oebmi-ti-fow-art true diagnostic CT examinationwith specific protocols. Standardized [...] Signed Date: 10/10/2024 05:54 ET Workstation ID: [id number] Transcribed By: Self Edit Transcribed Date: 10/10/2024 05:04 ET Alessandro Al MD [facility] NM PROCEDURES Final Resul t * (ABNORMAL) Lipid panel with reflex to direct LDL (08/31/2024 8:33 AM EST) Cholesterol 211(H) 0 - 200 mg/dL LAB CHEMISTRY METHOD 08/31/2024 10:26 AM [facility] Triglycerides 182(H) 0 - 150 mg/dL LAB CHEMISTRY METHOD 08/31/2024 10:26 AM [facility] HDL 61 >=40 mg/dL LAB CHEMISTRY METHOD 08/31/2024 10:26 AM [facility] LDL Calculated 114(H) 0 - 100 mg/dL LAB CHEMISTRY METHOD 08/31/2024 10:26 AM [facility] VLDL Cholesterol Spencer 36.4 mg/dL LAB CHEMISTRY METHOD 08/31/2024 10:26 AM [facility] Non HDL Chol. (LDL+VLDL) 150(H) <145 mg/dL LAB CHEMISTRY METHOD 08/31/2024 10:26 AM [facility] Chol/HDL Ratio 3.5 0.0 - 4.4 LAB CHEMISTRY METHOD 08/31/2024 10:26 AM [facility] Blood Venous blood specimen / Unknown Venipuncture / Unknown 08/31/2024 8:33 AM EST 08/31/2024 8:33 AM EST us Eleanor Hawley MD LAB BLOOD ORDERABLES Final Resul t [facility] [address] [place] [address], * (ABNORMAL) CBC auto differential (08/31/2024 8:33 AM EST) WBC 5.4 4.8 - 10.8 K/mcL LAB HEMETOLOGY METHOD 08/31/2024 10:06 AM [facility] RBC 4.30(L) 4.50 - 5.50 M/mcL LAB HEMETOLOGY METHOD 08/31/2024 10:06 AM [facility] Hemoglobin 13.7 13.5 - 17.5 g/dL LAB HEMETOLOGY METHOD 08/31/2024 10:06 AM [facility] Hematocrit 41.8(L) 42.0 - 54.0 % LAB HEMETOLOGY METHOD 08/31/2024 10:06 AM [facility] MCV 97.7 79.0 - 98.0 FL LAB HEMETOLOGY METHOD 08/31/2024 10:06 AM [facility] MCH 32.0 27.0 - 32.0 pcg LAB HEMETOLOGY METHOD 08/31/2024 10:06 AM [facility] MCHC 32.8 32.0 - 37.0 g/dL LAB HEMETOLOGY METHOD 08/31/2024 10:06 AM [facility] RDW 13.0 11.0 - 15.0 % LAB HEMETOLOGY METHOD 08/31/2024 10:06 AM [facility] Platelets 293 130 - 400 K/mcL LAB HEMETOLOGY METHOD 08/31/2024 10:06 AM [facility] MPV 8.7 7.0 - 11.0 FL LAB HEMETOLOGY METHOD 08/31/2024 10:06 AM [facility] NRBC 0.0 <1.0 % LAB HEMETOLOGY METHOD 08/31/2024 10:06 AM [facility] NRBC Absolute 0.00 <0.10 K/mcL LAB HEMETOLOGY METHOD 08/31/2024 10:06 AM [facility] Neutrophils Relative 59.9 % LAB HEMETOLOGY METHOD 08/31/2024 10:06 AM [facility] Lymphocytes Relative 25.9 % LAB HEMETOLOGY METHOD 08/31/2024 10:06 AM [facility] Monocytes Relative 11.0 % LAB HEMETOLOGY METHOD 08/31/2024 10:06 AM [facility] Eosinophils Relative 2.2 % LAB HEMETOLOGY METHOD 08/31/2024 10:06 AM EST [facility] Basophils Relative 0.6 % LAB HEMETOLOGY METHOD 08/31/2024 10:06 AM [facility] Immature Granulocytes Relative 0.4 % LAB HEMETOLOGY METHOD 08/31/2024 10:06 AM [facility] Neutrophils Absolute 3.26 1.50 - 7.00 K/mcL LAB HEMETOLOGY METHOD 08/31/2024 10:06 AM EST [facility] Lymphocytes Absolute 1.41 1.00 - 5.00 K/mcL LAB HEMETOLOGY METHOD 08/31/2024 10:06 AM [facility] Monocytes Absolute 0.60 0.20 - 1.00 K/mcL LAB HEMETOLOGY METHOD 08/31/2024 10:06 AM [facility] Eosinophils Absolute 0.12 0.00 - 0.50 K/mcL LAB HEMETOLOGY METHOD 08/31/2024 10:06 AM EST [facility] Basophils Absolute 0.03 0.00 - 0.20 K/mcL LAB HEMETOLOGY METHOD 08/31/2024 10:06 AM [facility] Immature Granulocytes Absolute 0.02 0.00 - 0.03 K/mcL LAB HEMETOLOGY METHOD 08/31/2024 10:06 AM [facility] Blood Venous blood specimen / Unknown Venipuncture / Unknown 08/31/2024 8:33 AM EST 08/31/2024 8:33 AM EST us Eleanor Hawley MD LAB BLOOD ORDERABLES Final Resul t [facility] [address] [place] [address], * Hemoglobin A1c (08/31/2024 8:33 AM EST) Hemoglobin A1C 5.8 <6.5 % LAB CHEMISTRY METHOD 08/31/2024 11:25 AM [facility] Mean Bld Glu Estim. 120 mg/dL LAB CHEMISTRY METHOD 08/31/2024 11:25 AM [facility] Blood Venous blood specimen / Unknown Venipuncture / Unknown 08/31/2024 8:33 AM EST 08/31/2024 8:33 AM EST us Eleanor Hawley MD LAB BLOOD ORDERABLES Final Resul t [facility] [address] [place] [address], * (ABNORMAL) Comprehensive metabolic panel (08/31/2024 8:33 AM EST) Sodium 134 133 - 145 mmol/L LAB CHEMISTRY METHOD 08/31/2024 10:26 AM [facility] Potassium 4.6 3.5 - 5.5 mmol/L LAB CHEMISTRY METHOD 08/31/2024 10:26 AM [facility] Chloride 101 96 - 110 mmol/L LAB CHEMISTRY METHOD 08/31/2024 10:26 AM [facility] CO2 29 21 - 32 mmol/L LAB CHEMISTRY METHOD 08/31/2024 10:26 AM [facility] Anion Gap 4 3 - 11 LAB CHEMISTRY METHOD 08/31/2024 10:26 AM [facility] Glucose 109(H) 70 - 100 mg/dL LAB CHEMISTRY METHOD 08/31/2024 10:26 AM [facility] BUN 14 5 - 25 mg/dL LAB CHEMISTRY METHOD 08/31/2024 10:26 AM [facility] Creatinine 0.93 0.70 - 1.30 mg/dL LAB CHEMISTRY METHOD 08/31/2024 10:26 AM [facility] eGFR 86 >=60 mL/min/1. 73m2 LAB CHEMISTRY METHOD 08/31/2024 10:26 AM [facility] Comment:Calculation based on the??Chronic Kidney Disease Epidemiology Collaboration (CKD-EPI) equation refit??without adjustment for race. BUN/Creatinine Ratio 15.1 LAB CHEMISTRY METHOD 08/31/2024 10:26 AM [facility] Calcium 8.8 8.5 - 10.5 mg/dL LAB CHEMISTRY METHOD 08/31/2024 10:26 AM [facility] AST (SGOT) 17 10 - 42 unit/L LAB CHEMISTRY METHOD 08/31/2024 10:26 AM [facility] ALT (SGPT) 29 10 - 60 unit/L LAB CHEMISTRY METHOD 08/31/2024 10:26 AM [facility] Alkaline Phosphatase 71 42 - 121 unit/L LAB CHEMISTRY METHOD 08/31/2024 10:26 AM [facility] Total Protein 6.8 6.0 - 8.0 g/dL LAB CHEMISTRY METHOD 08/31/2024 10:26 AM [facility] Albumin 3.7 3.2 - 5.0 g/dL LAB CHEMISTRY METHOD 08/31/2024 10:26 AM [facility] Total Bilirubin 0.4 0.0 - 1.4 mg/dL LAB CHEMISTRY METHOD 08/31/2024 10:26 AM [facility] Blood Venous blood specimen / Unknown Venipuncture / Unknown 08/31/2024 8:33 AM EST 08/31/2024 8:33 AM EST us Eleanor Hawley MD LAB BLOOD ORDERABLES Final Resul t [facility] [address] [place] [address], * Colonoscopy (10/27/2023) Colonoscopy No interpretation , abstracted Anatomical Region Laterality Modality Other Historical Provider HEALTH MAINTENANCE Final Result * Abdominal Aortic Aneurysm Screen (03/27/2015) Abdominal Aortic Aneurysm (AAA) Screening Abstracted Anatomical Region Laterality Modality Other Historical Provider HEALTH MAINTENANCE Final Result * Hepatitis C Screening (02/03/2013) Hepatitis C Screening Abstracted Historical Provider HEALTH MAINTENANCE Final Result from Last 3 Months or Most Recently Relevant to Health Maintenance Insurance MEDICARE [facility] Care Teams Baker Relationship Specialty Start Date End Date Eleanor Hawley MD [address] [place] [address] PCP - General Internal Medicine 01/15/20
== END 2024-10-30 09:57 | disposition home or self-care (01) ==
PROVIDERS: PCP Internal Medicine; Visit Provider Urology
DX: C61 Malignant neoplasm of prostate (principal); R97.21 Rising PSA following treatment for malignant neoplasm of prostate; Z13.9 Encounter for screening, unspecified
CPT/HCPCS: 99214

== ENCOUNTER → 2024-10-30 09:26 | Outpatient (BNVA) | payer OTHER, SELFPAY | PROVIDERS: PCP Internal Medicine; Visit Provider Urology | DX: C61 Malignant neoplasm of prostate (principal); N52.9 Male erectile dysfunction, unspecified; R97.21 Rising PSA following treatment for malignant neoplasm of prostate | CPT/HCPCS: 81003; 99212 ==

== ENCOUNTER 2025-04-23 08:39 | Outpatient (REF) | payer OTHER, SELFPAY ==
--- OUTSIDE RECORDS SUMMARY | 2025-04-23 09:19 | XMS_ITS | Data Portability ---
Author Organization [place] [facility], Allergy Address [address] [address] Care Team Providers Care Switch Operators Supervisor Name Role Phone TRISTAN TILLMAN Primary Care Provider Assessment No assessment recorded. Plan of Treatment Reminders Order Date Submit Date Provider Last Modified By Organization Details Last Modified Time Details Appointments Establish ed 30 2025 10:00A M TITO Blanco MD Not available Not available Not available Lab None recorded. Referral None recorded. Procedures None recorded. Surgeries None recorded. Imaging None recorded. Medication Orders None recorded. Patient TargetsNo targets recorded. Patient InstructionsNo instructions recorded. Reason for Referral None Reported. Results Created Date Observation Date Name Description Value Unit Range Abnormal Flag Note LastModifiedBy Organization Detail LastModifiedTime 03/07/2010/11/2022 imagi ng/di agnos tic resul t No [...] ation record ed. [email or web address] Not Available 00:12:51 03/07/20 24 05/06/2021 imagi ng/di agnos tic resul t No observ ation record ed. [email or web address] Not Available 00:13:12 03/07/2005/06/2021 imagi ng/di agnos tic resul t No observ ation record ed. [email or web address] Not Available 00:13:15 Result Notes None recorded. 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 , unilatera l, complete; Note: Date Diagnosed : 1 9:01 AM (478.32) Not Available [facility] 4 03:03:46 Disorder of vocal cord 94530240 Active 2021 Leukoplak ia of vocal cords; Note: Date Diagnosed : 2 4:58 PM (J38.3) Not Available [facility] 4 03:03:45 Malignant neoplasm of larynx 358794911 Active 2022 Malignant neoplasm of larynx; Note: Date Diagnosed : 09/24/2022 3:15 PM (C32) Not Available [facility] 4 03:03:43 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 Malignant neoplasm of vocal cord (true) NOS; Note: Date Diagnosed : 10/04/2022 11:31 AM (C32.0) Not Available [facility] 4 03:03:44 Follow-up visit Active 2022 Encounter for follow-up examinati on after completed treatment for malignant neoplasm; Note: Date Diagnosed : 02/18/2023 2:18 PM (Z08) Not Available [facility] 03:03:44 History of malignant neoplasm of larynx 379202821 Active 2022 Personal history of malignant neoplasm: Larynx; Note: Date Diagnosed : 02/18/2023 2:18 PM (V10.21) Maura shelton history of malignant neoplasm of larynx; Note: Date Diagnosed : 02/18/2023 2:18 PM (Z85.21) Not Available [facility] 03:03:45 Nasal congestio n 68226601 Active 2023 Nasal congestio n; Note: Date Diagnosed : 09/15/2023 9:02 AM (R09.81) TITO GERMAIN MD [address] [facility],[place] [address], [place], [address] , [place] [facility] 5 14:37:35 Chronic hoarsenes s 92222209367 05 Active 2023 TITO GERMANI MD [address] [place] [address],[place] [address], [place], [address] , [place] - [facility] 4 11:04:35 Perennial allergic rhinitis 791269434 Active 2023 TITO GERMAIN MD [address] [place] [address],[place] [address], [place], [address] , [place] [facility] 4 11:07:11 Problem Notes None recorded. Procedures Surgical History Date Name Laterality Status Provider Name and Address Organization Details Recorded Time 02/06/2025 FFL_RE completed TITO GERMAIN MD [address] [place] [address],[place] [address], [place], [address], [place] [facility] 02/06/2025 14:37:26 09/12/2024 FFL_RE completed TITO GERMAIN MD [address] [place] [address],[place] [address], [place], [address], [place] [facility] 09/12/2024 09:04:02 05/08/2024 FFL_RE completed TITO GERMAIN MD [address] [facility], [place], [address], [place] [facility] 05/08/2024 09:37:19 01/02/2024 FFL_RE completed TITO GERMAIN MD 100 [facility], [place], [address], [place] [facility] 01/02/2024 11:13:04 Imaging Results None recorded. Procedure Notes None recorded. Medical Equipment None [...] 5 mg tablet active Medicatio n ID: [id number] Br and Name: toño Bella Method: E-Prescri bed Subs Allowed: subs OK Medica tionGener icName: toño arpita Not Available Not Available Not Available naproxen [...] Updated DateTime 09/12/2024 175.26 cm 27.3 kg/m2 77528.59 g Silke Snow [place] [facility] 09/12/2024 08:55:54 Date Recorded Body height Body mass index (BMI) Body weight Provider Name and Address Organization Details Last Updated DateTime 01/02/2024 175.26 cm 27.3 kg/m2 42391.59 g Silke nSow [facility] 01/02/2024 10:55:58 Date Recorded Body height Body mass index (BMI) Body weight Provider Name and Address Organization Details Last Updated DateTime 02/06/2025 175.26 cm 27.3 kg/m2 46947.59 g Silke Snow [place] [facility] 02/06/2025 13:42:20 Date Recorded Body height Body mass index (BMI) Body weight Provider Name and Address Organization Details Last Updated DateTime 05/08/2024 175.26 cm 27.3 kg/m2 79038.59 g Silke Snow [facility] 05/08/2024 09:02:45 Social History None recorded. Functional Status None recorded. Mental Status None recorded. Family History Nothing Reported. Medical History No medical history recorded. Past Encounters Encounter ID Performer Location Encounter Start Date Encounter Closed Date Diagnosis/Indication Diagnosis SNOMED-CT Code Diagnosis ICD10 Code Diagnosis IMO Codes Diagnosis Note [id number] TITO GERMAIN MD [facility] [address] [address] 01/02/2024 10:06:25 01/02/2024 11:17:49 History of malignant neoplasm of larynx 555520450 Z85.21 Exam and Laryngosco py showed no evidence of disease. We will continue routine surveillan ce in 4 months. Chronic hoarseness 15216 21308 105 R49.0 Likely post treatment. Recommend hydration. Perennial allergic rhinitis 488914320 J30.89 Discussed allergy testing but he was not interested today. I discussed performing testing in the future if he did not improve. [id number] TITO GERMAIN MD [facility] [address] [address] 05/08/2024 08:56:17 05/08/2024 09:18:34 History of malignant neoplasm of larynx 067306950 Z85.21 Exam and Laryngosco py showed no evidence of disease. We will continue routine surveillan ce in 4 months. Chronic hoarseness 76586 21369 105 R49.0 Likely post treatment. Recommend hydration. Perennial allergic rhinitis 013922789 J30.89 [place] [id number] TITO GERMAIN MD [facility] [address] [address] 09/12/2024 08:45:39 09/12/2024 09:11:27 History of malignant neoplasm of larynx 039214099 Z85.21 Exam and Laryngosco py showed no evidence of disease. We will continue routine surveillan ce in 4 months. Chronic hoarseness 69819 35984 105 R49.0 Likely post treatment. Recommend hydration. Screening for malignant neoplasm of respiratory tract 695825929 Z12.2 Exam and Laryngosco py showed no evidence of disease. We [place]. [id number] TITO GERMAIN MD [facility] [address] [address] 02/06/2025 13:39:02 02/06/2025 14:39:29 History of malignant neoplasm of larynx 497161995 Z85.21 Exam and Laryngosco py showed no evidence of disease. We will continue routine surveillan ce in 6 months. Chronic hoarseness 10490 02855 105 R49.0 Likely post treatment. Recommend hydration. Screening for malignant neoplasm of respiratory tract 662532076 Z12.2 Exam and Laryngosco py showed no evidence of disease. We will continue routine surveillan ce. Nasal congestion 5322000 0 R09.81 [id number] I recommend a daily nasal saline rinse. Health Concerns Section Related Observation LastModified by Organization Detai ls LastModified Time None Recorded Concern Status LastModified by Organization Details LastModified Time None Recorded Advance Directives Directive None Recorded Payers Insurance Date Sequence Insurance Name Policy Number Policy Erickson Covered Member ID Erickson Member ID Guarantor Name 02/06/2025 1 [facility] [employer] - FAMILY [employer] PLAN (POS) [id number] Mk Foster [id number] Mk Foster 02/06/2025 2 [facility] (PPO) [id number] Mk Foster [id number] Mk Foster Notes Date Note Type Note Provider Name and Address Organization Details Recorded Time 01/02/2024 text/html ROS as noted in the HPI 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 He denies pain and has occasional hoarseness. He has had worse allergies this season. He denies dysphagia. Uses afrin PRN. 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 He denies pain and has occasional hoarseness. He has had worse allergies this season. He denies dysphagia. Uses afrin PRN. 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 He denies pain and has occasional hoarseness. He has had worse allergies this season. He denies dysphagia. 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 He denies pain and has occasional hoarseness. He has had worse allergies this season. He denies dysphagia. He has nasal congestion. has tried nasal spray without benefit. TITO GERMAIN MD [address] [place] [address],[address], [address], [facility] - [facility] 02/06/2025 14:38:22
--- OUTSIDE RECORDS SUMMARY | 2025-04-23 09:19 | XMS_ITS | Clinical Summary ---
Author Organization [employer] Address [address] [place] [address] [address] [place] [address] Care Team Providers Care Medical Laboratory Manager Name Role Phone Unavailable Primary Care Provider Unavailabl e Immunizations Immunization Administration Dates Next Due Influenza, seasonal, injectable, [...] C Screening 1968 COVID-19 Vaccine ( season) 2025 04/15/2023, 04/08/2022, 11/03/2021, Additional history exists Influenza Vaccine (#1) 2025 , 03/14/2024, 03/31/2023, Additional history exists DTaP/Tdap/Td Vaccines (3 - Td or Tdap) 10/01/2025 10/02/2015, 02/02/2013, 03/12/2003 Pneumococcal Vaccine: 50+ Years Completed 12/03/2015, 09/25/2014 Zoster Vaccines Completed 04/16/2020, 01/16, 01/28/2012 RSV Patients and Patients Aged 60 years or older Completed 07/05/2023 HIB Vaccines Aged Out No longer eligi [...]
--- OUTSIDE RECORDS SUMMARY | 2025-04-23 09:19 | XMS_ITS | Clinical Summary ---
Author Organization [facility] [address] [place] [address] Address [address] [place], [place] Phone Care Team Providers Care Electronics Worker Name Role Phone Eleanor Hawley MD Primary Care Provider [phone] Allergies No known active allergies Medications brimonidine-ti moloL (COMBIGAN) 0.2-0.5 % ophthalmic solution Administer 1 drop into affected eye(s) 2 (two) times a day. O.U. Active dorzolamide (TRUSOPT) 2 % ophthalmic solution Administer 2 drops into both eyes 2 (two) times a day. 12/17/19 17 Active netarsudiL-lat anoprost (Rocklatan) 0.02-0.005 % drops 01/27/20 21 Active amLODIPine (NORVASC) 5 mg tablet Take 1 tablet (5 mg total) by mouth at bedtime. 90 tablet 1 11/14/19 25 Active lisinopriL (PRINIVIL,ZEST RIL) 10 mg tablet Take 1 tablet (10 mg total) by mouth at bedtime. 90 tablet 1 11/14/19 25 Active pravastatin (PRAVACHOL) 40 mg tablet Take 1 tablet (40 mg total) by mouth at bedtime. 90 each 1 03/26/20 25 Active pravastatin (PRAVACHOL) 20 mg tablet Take 1 tablet (20 mg total) by mouth at bedtime. 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 Al, s/p Rt and jeovany [place] 8 Erectile dysfunction 03/27/2015 Hyperlipidemia 03/26/2015 Ingrown right big toenail 03/26/2015 Overview (05/02/2024): Partial nail avulsion, 04/01/2014 Arthritis of big toe 05/31/2011 Alcohol abuse 06/20/2006 Overview (05/02/2024): 20-30 beers per week Glaucoma 06/20/2006 Hypertension 06/20/2006 Resolved Problems Problem Noted Date Diagnosed Date Resolved Date Skull fracture ([facility] V24, [facility] V28) 09/18/2008 01/10/2025 Overview (05/02/2024): Drinking alcohol and fell down stairs and had skull fracture with frontal lobe hematoma October 2007. Still with some decreased hearing Encounters Date Type Department Care Team Description 04/17/2025 9:30 AM EDT Clinical Support Adult Medicine [address] [phone] B12 deficiency (Primary Dx) 03/22/2025 9:00 AM EDT Office Visit [address] [phone] Annalee Pace PA Annual physical exam (Primary Dx); Prediabetes; Mixed hyperlipidemia 03/21/[address] [phone] Breanna Hooper MA 03/19/2025 9:30 AM EDT Treatment Outpatient [address] [phone] Angel Varela, PT Chronic pain of both knees (Primary Dx) 03/14/2025 1:30 PM EDT Treatment Outpatient [address] [phone] Radha Jefferson, HORSE STUD MANAGER Chronic pain of both knees (Primary Dx) 03/13/2025 9:30 AM EDT Clinical Support [address] [phone] B12 deficiency (Primary Dx) 03/12/2025 9:30 AM EDT Treatment Outpatient [address] [phone] Angel Varela, PT Chronic pain of both knees (Primary Dx) 03/07/2025 9:30 AM EDT Treatment Outpatient [address] [phone] Angel Varela, PT Chronic pain of both knees (Primary Dx) 03/05/2025 9:30 AM EDT Treatment Outpatient [address] [phone] Angel Varela, PT Chronic pain of both knees (Primary Dx) 02/26/2025 9:30 AM EDT Treatment Outpatient [address] [phone] Radha Jefferson, HORSE STUD MANAGER Chronic pain of both knees (Primary Dx) 02/13/2025 10:00 AM EDT Clinical Support [address] [phone] B12 deficiency (Primary Dx) 02/11/2025 10:00 AM EDT Treatment Outpatient Rehabilitation - [address] [phone] Radha Jefferson, HORSE STUD MANAGER Chronic pain of both knees (Primary Dx) 02/07/2025 9:00 AM EDT Treatment Outpatient Rehabilitation - [address] [phone] Angel Varela, PT Chronic pain of both knees (Primary Dx) 02/05/2025 9:30 AM EDT Evaluation Outpatient Rehabilitation [address] [phone] Angel Varela, PT Chronic pain of both knees 02/05/2025 Plan of Care Documentation Outpatient Rehabilitation - [address] [phone] from Last 3 Months Immunizations Immunization Administration Dates Next Due COVID-19 (Moderna/Spikevax) 12yo [...] subun it RSVpreF, 0.5mL, Preservative Free (Arexvy) 50yo and older 07/05/2023 Td, Unspecified 03/12/2003 Tdap Tetanus diptheria acell ular pertussis (Boostrix; Adacel) 7yo and older 10/02/2015,02/02/2013 Zoster Live 01/28/2012 Zoster recombinant (Shingrix ) 19yo and older 04/16/2020,02/12/2020 Surgical History Surgery Date Site/Laterality Comments COLONOSCOPY 07/18/2002 - 07/17/2003 normal COLONOSCOPY 07/18/2012 - 07/17/2013 normal OTHER SURGICAL HISTORY 07/18/1974 - 07/17/1975 Right : trauma to arm HAND SURGERY 07/18/2018 - 07/17/2019 Right trigger finger Medical History Medical History Date Comments Essential hypertension, benign 06/20/2006 Unspecified glaucoma(365.9) 06/20/2006 Alcohol abuse, unspecified 06/20/2006 Prostate cancer ([facility] V24 , [facility] V28) B12 deficiency 12/16/2020 Prediabetes 04/17/2019 Arthritis of big toe 05/31/2011 Skull fracture ([facility] V24, [facility] V28) 09/18/2008 Drinking alcohol and fell do wn stairs and had skull fracture with frontal lobe hematoma October 2007. Still with some decreased hearing Vocal cord cancer ([facility] V 24, [facility] V28) 07/05/202210/07 well differentiated squ amous cell carcinoma of the right vocal cord/ RT Family History Medical History Relation Name Comments Heart attack Brother 1 x 3 thyroid issues? Alcohol abuse Brother 2 x 1 Heart failure Father CAD, alcoholis m Breast cancer Mother unilateral Breast cancer Sister x 1 unilateral? Relation Name Status Comments Brother 1 x 3 Alive Brother 2 x 1 Father Maternal Grandfather Maternal Grandmother Mother (Age 88) Paternal Grandfather Paternal Grandmother Sister x 1 Alive Social History Tobacco Use Types Packs/Day Years Used Date Smoking Tobacco: Former Cigarettes Q uit: 09/08/2011 Smokeless Tobacco: Never Comments:Started age 17; max 1/2 PPD; quit age 61 - declines lung cancer screening offered on 03/22/25 Alcohol Use Standard Drinks/Week Comments Yes 0 (1 standard drink = 0.6 oz pure alcohol) 2 beers, plus 1 wine or sunday daily Housing Instability Answer Date Recorde d Are you worried that in the next 2 months you may not have stable housing? No 03/22/2025 Food Access & Nutrition Answer Date Rec orded Do you have access to a vari ety of food including fruits and vegetables? Yes 03/22/2025 Access to Healthcare Answer Date Record ed Within the last 3 months, ho w many times did you visit the emergency department for your medical care? 0 03/22/2025 Health Literacy Answer Date Recorded How often do you need to hav e someone help you when you read instructions, pamphlets, or other written material from your doctor or pharmacy? Never 03/22/2025 Caregiver: How often do you need to have someone help you when you read instructions, pamphlets, or other written material from your doctor or pharmacy? Not on file 03/22/2025 Financial Risk Answer Date Recorded How hard is it for you to pa y for the very basics like food, housing, medical care, and air conditioning / heating? Not very hard 03/22/2025 Transportation Answer Date Recorded Has the lack of transportati on kept you from meetings, work, or from getting things needed for daily living? No Has the lack of transportati on kept you from medical appointments or from getting medications? No 03/22/2025 Social Isolation Answer Date Recorded How often do you feel lonely or isolated from th ose around you? Never 03/22/2025 Food Risk Answer Date Recorded Within the past 12 months we worried whether our food would run out before we got money to buy more. Never true 03/22/2025 Within the past 12 months th e food we bought just didn't last and we didn't have money to get more. Never true 03/22/2025 Dependent Care Answer Date Recorded Do you need help finding or paying for care for your loved ones. For example, teacher early childhood development or elderly care for an older adult? No 03/22/2025 Education Answer Date Recorded Do you think completing more education or training, like finishing a GED, going to college, or learning a trade, would be helpful for you? N/A 03/22/2025 Employment and Income Answer Date Recor ded During the last four weeks, have you been actively looking for work? No 03/22/2025 Living Situation Answer Date Recorded What is your living situation? Unrecognized valu e 03/22/2025 Education Answer Date Recorded What is the highest level of school you have completed or the highest degree you have received? Bachelor's degree (e.g., BA, AB, BS) 03/22/2025 Sex and Gender Information Value Date Recorded Sex Assigned at Male 02/27/2025 10:23 AM EDT Legal Sex Male 12:17 AM EST Gender Identity Male 02/27/2025 10:23 AM EDT Sexual Orientation Straight 02/27/2025 10 :23 AM EDT Occupation Industry Job Start Date Job End Date Retired [employer] Not on file Not on file Not on file Obstetrics History Last Filed Vital Signs Vital Sign Reading Time Taken Comments Blood Pressure 126/66 03/22/2025 8:52 AM EDT Pulse 72 03/22/2025 8:52 AM EDT Temperature 36.4 C (97.5 F) 03/22/2025 8:52 AM EDT Respiratory Rate 16 03/22/2025 8:52 AM EDT Oxygen Saturation 98% 03/22/2025 8:52 AM EDT Inhaled Oxygen Concentration - - Weight 90.7 kg (200 lb) 03/22/2025 8:52 AM EDT Height 177.8 cm (5' 10 ) 03/22/2025 8:52 AM EDT Body Mass Index 28.7 03/22/2025 8:52 AM EDT Plan of Treatment Upcoming Encounters Date Type Department Care Team (Late st Contact Info) Description 05/15/2025 9:00 AM EDT Clinical Support Adult Medicine [address] [phone] 06/12/2025 9:30 AM EST Clinical Support Adult Medicine [address] [phone] 09/19/2025 2:00 PM EST Office Visit Adult Medicine [address] [phone] Eleanor Hawley MD [address] [place], [place] Health Maintenance Due Date Last Done Comments Hepatitis A Vaccines (1 of 2 - Risk 2-dose series) 1969 Hypertension/CHF/CAD Annual BMP Blood Test 08/31/2025 08/31/2024, 12/06/2023, 12/06/2023 COVID-19 Vaccine (8 - Pfizer risk 2023- season) 2025 03/24/2025, 04/15/2023, 04/08/2022, Additional history exists DTaP,Tdap,and Td Vaccines (4 - Td or Tdap) 10/01/2025 10/02/2015, 02/02/2013, 03/12/2003 Falls Risk Assessment 01/10/2026 01/10/2025 Social Influencers of Health Screening 03/22/2026 03/22/2025 Cholesterol Screening (Lipid Panel) 03/22/2030 03/22/2025, 08/31/2024, 12/06/2023, Additional history exists Colorectal Cancer Screening: Colonoscopy 10/26/2033 10/27/2023 Hepatitis C Screening Completed 02/03/2013 Abdominal Aortic Aneurysm (AAA) Screen Completed 03/27/2015, 03/27/2015 Pneumococcal Vaccine: 50+ Years Completed 12/03/2015, 09/25/2014 Zoster Vaccines Completed 04/16/2020, 01/16, 01/28/2012 RSV Immunization Adult Patients Completed 07/05/2023 Depression Screening Completed 03/22/2025 Influenza Vaccine Completed 03/24/2025, , 03/31/2023, Additional history exists HIB Vaccines [...] Procedure Name Priority Date/Time Associated Diagnosis Comments HEMOGLOBIN A1C Routine 03/22/2025 9:58 AM EDT Prediabetes MICROALBUMIN CREATININE URINE RATIO Routine 03/22/2025 9:58 AM EDT Prediabetes LIPID PANEL WITH REFLEX TO DIRECT LDL Routine 03/22/2025 9:58 AM EDT Mixed hyperlipidemia COMPREHENSIVE METABOLIC PANEL Routine 08/31/2024 8:33 AM EST Primary hypertension COLONOSCOPY Routine 10/27/2023 ABDOMINAL AORTIC ANEURYSM SCRREN Routine 03/27/2015 HEPATITIS C SCREENING Routine 02/03/2013 from Last 3 Months or Most Recently Relevant to Health Maintenance Results * (ABNORMAL) Lipid panel with reflex to direct LDL (03/22/2025 9:58 AM EDT) Cholesterol 234(H) 0 - 200 mg/dL LAB CHEMISTRY METHOD 03/22/2025 12:53 PM EDT [facility] Triglycerides 252(H) 0 - 150 mg/dL LAB CHEMISTRY METHOD 03/22/2025 12:53 PM EDT [facility] HDL 78 >=40 mg/dL LAB CHEMISTRY METHOD 03/22/2025 12:53 PM EDT [facility] LDL Calculated 106(H) 0 - 100 mg/dL LAB CHEMISTRY METHOD 03/22/2025 12:53 PM T [facility] Comment:Estimated LDL Calcul ated using equation: Total cholesterol - HDL cholesterol - (Triglycerides/5) VLDL Cholesterol Spencer 50.4 mg/dL LAB CHEMISTRY METHOD 03/22/2025 12:53 PM EDT [facility] Non HDL Chol. (LDL+VLDL) 156(H) <145 mg/dL LAB CHEMISTRY METHOD 03/22/2025 12:53 PM EDT [facility] Chol/HDL Ratio 3.0 0.0 - 4.4 LAB CHEMISTRY METHOD 03/22/2025 12:53 PM EDT [facility] Blood Venous blood specimen / Unknown Venipuncture / Unknown 03/22/2025 9:58 AM EDT 03/22/2025 9:58 AM EDT us Annalee LOVETT LAB BLOOD ORDERABLES Final Re sult Performing Organization Address [facility]/ZIP Co de Phone Number [facility] [address] [place] [address], [place] [phone] * Microalbumin creatinine urine ratio (03/22/2025 9:58 AM EDT) Creatinine, Urine 158.0 mg/dL LAB CHEMISTRY METHOD 03/22/2025 9:13 PM EDT [facility] Microalb, Ur 8.4 0.0 - 29.0 mg/L LAB CHEMISTRY METHOD 03/22/2025 9:13 PM EDT [facility] Microalb/Creat Ratio 5 <30 mg/g creat LAB CHEMISTRY METHOD 03/22/2025 9:13 PM EDT [facility] Urine Urine specimen from urethra / Unknown Non-blood Collection / Unknown 03/22/2025 9:58 AM EDT 03/22/2025 9:58 AM EDT us Annalee LOVETT LAB URINE ORDERABLES Final Re sult Performing Organization Address [facility]/ZIP Co de Phone Number [facility] [address] [place] [address], [place] [phone] * Hemoglobin A1c (03/22/2025 9:58 AM EDT) [facility] Hemoglobin A1C 5.9 <6.5 % LAB CHEMISTRY METHOD 03/22/2025 1:43 PM EDT [facility] Mean Bld Glu Estim. 123 mg/dL LAB CHEMISTRY METHOD 03/22/2025 1:43 PM EDT [facility] Blood Venous blood specimen / Unknown Venipuncture / Unknown 03/22/2025 9:58 AM EDT 03/22/2025 9:58 AM EDT us Annalee LOVETT LAB BLOOD ORDERABLES Final Re sult [facility] [address] [place] [address], [place] [phone] * (ABNORMAL) Comprehensive metabolic panel (08/31/2024 8:33 AM EST) [facility] Sodium 134 133 - 145 mmol/L LAB CHEMISTRY METHOD 08/31/2024 10:26 AM [facility] Potassium 4.6 3.5 - 5.5 mmol/L LAB CHEMISTRY METHOD 08/31/2024 10:26 AM [facility] Chloride 101 96 - 110 mmol/L LAB CHEMISTRY METHOD 08/31/2024 10:26 AM [facility] CO2 29 21 - 32 mmol/L LAB CHEMISTRY METHOD 08/31/2024 10:26 AM [facility] Anion Gap 4 3 - 11 LAB CHEMISTRY METHOD 08/31/2024 10:26 AM [facility] Glucose 109(H) 70 - 100 mg/dL LAB CHEMISTRY METHOD 08/31/2024 10:26 AM [facility] BUN 14 5 - 25 mg/dL LAB CHEMISTRY METHOD 08/31/2024 10:26 AM [facility] Creatinine 0.93 0.70 - 1.30 mg/dL LAB CHEMISTRY METHOD 08/31/2024 10:26 AM [facility] eGFR 86 >=60 mL/min/1. 73m2 LAB CHEMISTRY METHOD 08/31/2024 10:26 AM [facility] Comment:Calculation based on the Chronic Kidney Disease Epidemiology Collaboration (CKD-EPI) equation refit without adjustment for race. BUN/Creatinine Ratio 15.1 LAB CHEMISTRY METHOD 08/31/2024 10:26 AM [facility] Calcium 8.8 8.5 - 10.5 mg/dL LAB CHEMISTRY METHOD 08/31/2024 10:26 AM [facility] AST (SGOT) 17 10 - 42 unit/L LAB CHEMISTRY METHOD 08/31/2024 10:26 AM [facility] ALT (SGPT) 29 10 - 60 unit/L LAB CHEMISTRY METHOD 08/31/2024 10:26 AM [facility] Alkaline Phosphatase 71 42 - 121 unit/L LAB CHEMISTRY METHOD 08/31/2024 10:26 AM [facility] Total Protein 6.8 6.0 - 8.0 g/dL LAB CHEMISTRY METHOD 08/31/2024 10:26 AM [facility] Albumin 3.7 3.2 - 5.0 g/dL LAB CHEMISTRY METHOD 08/31/2024 10:26 AM [facility] Total Bilirubin 0.4 0.0 - 1.4 mg/dL LAB CHEMISTRY METHOD 08/31/2024 10:26 AM [facility] Blood Venous blood specimen / Unknown Venipuncture / Unknown 08/31/2024 8:33 AM EST 08/31/2024 8:33 AM EST us Eleanor Hawley MD LAB BLOOD ORDERABLES Final Resul t [facility] [address] [place] [address], * Hm Colonoscopy (10/27/2023) Colonoscopy No interpretation , abstracted Anatomical Region Laterality Modality Other Historical Provider HEALTH MAINTENANCE Final Result * Abdominal Aortic Aneurysm Screen (03/27/2015) Abdominal Aortic Aneurysm (AAA) Screening Abstracted Anatomical Region Laterality Modality Other [facility] Provider HEALTH MAINTENANCE Final Result * Hepatitis C Screening (02/03/2013) Hepatitis C Screening Abstracted Historical Provider HEALTH MAINTENANCE Final Result from Last 3 Months or Most Recently Relevant to Health Maintenance Insurance [employer] Care Teams Electronics Worker Relationship Specialty Start Date End Date Eleanor Hawley MD [address] [place] [address] PCP - General Internal Medicine 01/15/20
--- OUTSIDE RECORDS SUMMARY | 2025-04-23 09:19 | XMS_ITS | Clinical Summary ---
Author Organization [facility] Address [address] [place] [address] Care Team Providers Care Ore Roaster Name Role Phone Unavailable Primary Care Provider [...] Screening (Colonoscopy) 1994 Fall Risk Assessment 2014 RSV Adult > 60+ Yrs or (1 - 1-dose 75+ series) 2024 COVID-19 Vaccine ( season) 2025 05/05/2021, 10/26/2020, 10/07/2020 Influenza Vaccine (#1) 2025 3, 04/02/2022, 03/27/2021, Additional history exists DTap / Tdap / Td (3 - [...]
[2025-04-23 11:12] LABS: Prostate Specific Antigen 3.62 ng/mL (<0.05-4.0)
== END 2025-04-23 08:40 | disposition home or self-care (01) ==
LOC: HO.HMGCLDS 08:39
PROVIDERS: PCP Internal Medicine; Visit Provider Urology
DX: Z12.5 Encounter for screening for malignant neoplasm of prostate (principal); R97.21 Rising PSA following treatment for malignant neoplasm of prostate
CPT/HCPCS: 36415; 84153; 84403

== ENCOUNTER 2025-05-02 09:39 | Outpatient (AMB) | payer OTHER, SELFPAY ==
--- NOTE | 2025-05-02 09:46 | A.OFFVIS_ITS ---
Intake Visit Reasons: 6m/labs Intake Note: patient presents today for: 6mo/labs urology medications: sildenafil, tadalafil, tamsulosin blood thinners: none labs done 04/23/25: PSA 3.62, TT 363 Business Development Associate Required: No Accompanied by: Self / Same As Patient Allergies No Known Allergies Allergy (Verified 05/02/25 09:48) HPI Comments Details: Mk SORIA is a very pleasant male. He is a patient of Dr Hawley. He is seen for the following urologic conditions. 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 PSA 08/07 PSA < 0.5, T 28, 09/07 0.2, T 115, 03/07 <0.1, T 17, 07/07 <0.1 112, 12/06 <0.1 120, 04/08 0.4 T 300, 08/09 0.7, 12/07 0.6, 06/09 0.72, 12/08 0.9, 07/10 1.8, 11/09 2.1, 04/11 3.6 T 363 Prostate cancer: [place] 8, group 4. Initial treatment radiation with hormone therapy completed December 2019 Prostate cancer was diagnosed 09/06 Dr Al Diagnosis was reached by 08/06 needle biopsy, for elevated PSA, PSA at diagnosis PSA 16 Prior PSA Feb 2017 4.8 - 09/04 4.8 - started finasteride 07/05 16 [place] grade is ten of twelve cores - 4+4 = 8 5%, , 4+3 = 7, 3+4 = 7 - multicore, high volume 50% of all total course and total volume. TNM Classification of Malignant Tumours (TNM) T1c. The D'Josemanuel (NCCN) risk category is High Risk (PSA > 20, Gl 8+, T3). Initial therapy included Primary treatment - primary therapy external beam therapy with 18 months GnRH/bicalutamide/finasteride - [facility] 01/04 - Dr Stovall - Last GnRH 03/07 Recent imaging included 09/06 , a bone scan negative 09/06 , a CT (computed tomography) scan negative. PFSH Medical History Hyperlipidemia Elevated PSA Glaucoma Erectile dysfunction Arthritis Chronic prostatitis Surgical History History of hand surgery Family History Father No problems noted. Mother Breast cancer Review of Systems Const Denies chills and Denies fever(s) Card Reports no additional complaints and Denies syncope Resp Denies cough GI Denies abdominal pain and Denies heartburn Reports as per HPI and Denies change in libido Neuro Denies syncope Psych Denies change in libido Endo Denies change in libido Physical Exam Const General: cooperative, healthy appearing, comfortable and no acute distress Orientation/consciousness: patient oriented x3 HEENT Face and sinus: Yes normal facial exam Mouth: moist mucous membranes Neck Neck: Yes normal visual inspection, Yes full ROM and Yes trachea midline Chest Chest palpation & inspection: normal inspection of the chest Resp Effort & Inspection: normal respiratory effort, able to speak in complete sentences and no respiratory distress GI Inspection: Yes normal to inspection Back/Spine/Pelvis Cervical Spine: normal cervical lordosis Thoracic/Lumbar Spine: thoracic and lumbar spine normal to inspection Skin General skin exam: no rashes or lesions noted Neuro General: patient oriented x3, gait normal, tone normal and moves all extremities Extrem General: Yes normal to inspection and Yes capillary refill normal Assessment & Plan Assessment & Plan (1) Prostate cancer: Comment: High-grade prostate cancer August 2019 initial therapy external beam radiation with 2 years hormone therapy Code(s): C61 - Malignant neoplasm of prostate Category: Medical (2) Rising PSA following treatment for malignant neoplasm of prostate: Code(s): R97.21 - Rising PSA following treatment for malignant neoplasm of prostate Category: Medical Plan Three-month follow-up lab work Orders: Orders Prostate Specific Antigen 3 Months R97.21 - Rising PSA following treatment for malignant neoplasm of prostate Patient Instructions: This note is constructed using voice recognition software. While every effort has been made to ensure accuracy angular developer errors may have been included. Imaging studies, laboratory and physical exam results were discussed and reviewed in detail. No major barriers to patient understanding were identified. An opportunity to ask questions regarding the treatment plan was provided. All questions were answered. The patient expressed understanding and agreement with the above treatment plan. The patient is aware they should contact our office by phone for worsening of their current condition or the appearance of new urologic symptoms. Compliance is encouraged with any medications and followup testing that is ordered. It is a privilege to participate in the urologic care of your patient. If you have any questions or concerns regarding treatment for the above conditions, or other urologic issues, please do not hesitate to contact me. The office telephone contact is [phone]. Sincerely, Dr Alessandro Al MD, [facility] - Urology Compassionate Specialist Care for the Genitourinary System Coding Level of Care Code Est Pt Level 3 (33488) Complex EM visit Add On G2211 Diagnoses Prostate cancer C61 Rising PSA following treatment for malignant neoplasm of prostate R97.21
--- OUTSIDE RECORDS SUMMARY | 2025-05-02 11:06 | XMS_ITS | Clinical Summary ---
Author Organization [facility] Address [address] [place] [address] Care Team Providers Care Horizontal Boring Mill Set Up Operator Name Role Phone Unavailable Primary Care [...]
--- OUTSIDE RECORDS SUMMARY | 2025-05-02 11:06 | XMS_ITS | Clinical Summary ---
Author Organization [employer] Address [address] [place] [address] [address] [place] [address] Care Team Providers Care Electron Beam Welder Setter Name Role Phone Unavailable Primary Care Provider [...]
--- OUTSIDE RECORDS SUMMARY | 2025-05-02 11:06 | XMS_ITS | Clinical Summary ---
Author Organization [facility] [address] [place] [address] Address [address] [place], [place] Phone Care Team Providers Care Cloth Stock Sorter Name Role Phone Eleanor Hawley MD Primary Care Provider [phone] Allergies No known active allergies Medications brimonidine-harinder oloL (COMBIGAN) 0.2-0.5 % ophthalmic solution Administer 1 drop into affected eye(s) 2 (two) times a day. O.U. Active dorzolamide (TRUSOPT) 2 % ophthalmic solution Administer 2 drops into both eyes 2 (two) times a day. 7 Active netarsudiL-britt noprost (Rocklatan) 0.02-0.005 % drops 1 Active amLODIPine (NORVASC) 5 mg tablet Take 1 tablet (5 mg total) by mouth at bedtime. 90 tablet 1 5 Active lisinopriL (PRINIVIL,ZESTR IL) 10 mg tablet Take 1 tablet (10 mg total) by mouth at bedtime. 90 tablet 1 5 Active pravastatin (PRAVACHOL) 40 mg tablet Take 1 tablet (40 mg total) by mouth at bedtime. 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 Al, s/p Rt and lupron Odilia 8 Erectile dysfunction 03/27/2015 Hyperlipidemia 03/26/2015 Ingrown right big toenail 03/26/2015 Overview (05/02/2024): Partial nail avulsion, 04/01/2014 Arthritis of big toe 05/31/2011 Alcohol abuse 06/20/2006 Overview (05/02/2024): 20-30 beers per week Glaucoma 06/20/2006 Hypertension 06/20/2006 Resolved Problems Problem Noted Date Diagnosed Date Resolved Date Skull fracture ([facility] V24, [facility] V28) 09/18/2008 01/10/2025 Overview (05/02/2024): Drinking alcohol and fell down stairs and had skull fracture with frontal lobe hematoma October 2007. Still with some decreased hearing Encounters Date Type Department Care Team Description 04/17/2025 9:30 AM EDT Clinical Support Adult Medicine [address] [phone] B12 deficiency (Primary Dx) 03/22/2025 9:00 AM EDT Office Visit Adult [address] [phone] Annalee Pace PA Annual physical exam (Primary Dx); Prediabetes; Mixed hyperlipidemia 03/21/2025 Telephone Adult Medicine [address] [phone] Breanna Hooper MA 03/19/2025 9:30 AM EDT Treatment Outpatient [address] [phone] Angel Varela, PT Chronic pain of both knees (Primary Dx) 03/14/2025 1:30 PM EDT Treatment Outpatient [address] [phone] Radha Jefferson, FUEL ASSEMBLER Chronic pain of both knees (Primary Dx) 03/13/2025 9:30 AM EDT Clinical Support [address] [phone] B12 deficiency (Primary Dx) 03/12/2025 9:30 AM EDT Treatment Outpatient [address] [phone] Angel Varela, PT Chronic pain of both knees (Primary Dx) 03/07/2025 9:30 AM EDT Treatment Outpatient [address] [phone] Angel Varela, PT Chronic pain of both knees (Primary Dx) 03/05/2025 9:30 AM EDT Treatment Outpatient [address] [phone] Angel Varela, PT Chronic pain of both knees (Primary Dx) 02/26/2025 9:30 AM EDT Treatment Outpatient [address] [phone] Radha Jefferson, FUEL ASSEMBLER Chronic pain of both knees (Primary Dx) 02/13/2025 10:00 AM EDT Clinical Support [address] [phone] B12 deficiency (Primary Dx) 02/11/2025 10:00 AM EDT Treatment Outpatient [address] [phone] Radha Jefferson, FUEL ASSEMBLER Chronic pain of both knees (Primary Dx) 02/07/2025 9:00 AM EDT Treatment Outpatient Rehabilitation - [address] [phone] Angel Varela, PT Chronic pain of both knees (Primary Dx) 02/05/2025 9:30 AM EDT Evaluation Outpatient Rehabilitation - [address] [phone] Angel Varela, PT Chronic pain of both knees 02/05/2025 Plan of Care Documentation Outpatient Rehabilitation - [address] [phone] from Last 3 Months Immunizations Immunization Administration [...] 06/20/2006 Alcohol abuse, unspecified 06/20/2006 Prostate cancer ([facility] V24 , [facility] V28) B12 deficiency 12/16/2020 Prediabetes 04/17/2019 Arthritis of big toe 05/31/2011 Skull fracture ([facility] V24, [facility] V28) 09/18/2008 Drinking alcohol and fell do wn stairs and had skull fracture with frontal lobe hematoma October 2007. Still with some decreased hearing Vocal cord cancer ([facility] V 24, [facility] V28) 07/05/202210/07 well differentiated squ amous cell [...] for your loved ones. For example, child support case officer or elderly care for an older adult? [...] 9:00 AM EDT Clinical Support Adult Medicine [address] [phone] 06/12/2025 9:30 AM EST Clinical Support Adult [address] [phone] 09/19/2025 2:00 PM EST Office Visit Adult [address] [phone] Eleanor Hawley MD [address] [place] [address] Health Maintenance Due Date Last Done Comments [...] LAB CHEMISTRY METHOD 03/22/2025 12:53 PM T [facility] Triglycerides 252(H) 0 - 150 mg/dL LAB CHEMISTRY METHOD 03/22/2025 12:53 PM [facility] HDL 78 >=40 mg/dL LAB CHEMISTRY METHOD 03/22/2025 12:53 PM [facility] LDL Calculated 106(H) 0 - 100 mg/dL LAB CHEMISTRY METHOD 03/22/2025 12:53 PM [facility] Comment:Estimated LDL Calcul ated using equation: Total cholesterol - HDL cholesterol - (Triglycerides/5) VLDL Cholesterol Spencer 50.4 mg/dL LAB CHEMISTRY METHOD 03/22/2025 12:53 PM [facility] Non HDL Chol. (LDL+VLDL) 156(H) <145 mg/dL LAB CHEMISTRY METHOD 03/22/2025 12:53 PM EDT [facility] Chol/HDL Ratio 3.0 0.0 - 4.4 LAB CHEMISTRY METHOD 03/22/2025 12:53 PM EDT [facility] Blood Venous blood specimen / Unknown Venipuncture / Unknown 03/22/2025 9:58 AM EDT 03/22/2025 9:58 AM EDT us Annalee LOVETT LAB BLOOD ORDERABLES Final Re sult Performing Organization Address [facility]/ZIP Co de Phone Number [facility] [address] [place] [address], [place] [phone] * Microalbumin creatinine urine ratio (03/22/2025 9:58 AM EDT) Creatinine, Urine 158.0 mg/dL LAB CHEMISTRY METHOD 03/22/2025 9:13 PM EDT [facility] Microalb, Ur 8.4 0.0 - 29.0 mg/L LAB CHEMISTRY METHOD 03/22/2025 9:13 PM EDT [facility] Microalb/Creat Ratio 5 <30 mg/g creat LAB CHEMISTRY METHOD 03/22/2025 9:13 PM EDT [facility] Urine Urine specimen from urethra / Unknown Non-blood Collection / Unknown 03/22/2025 9:58 AM EDT 03/22/2025 9:58 AM EDT us Annalee LOVETT LAB URINE ORDERABLES Final Re sult Performing Organization Address [facility]/ZIP Co de Phone Number [facility] [address] [place] [address], [place] [phone] * Hemoglobin A1c (03/22/2025 9:58 AM EDT) Hemoglobin A1C 5.9 <6.5 % LAB CHEMISTRY METHOD 03/22/2025 1:43 PM EDT [facility] Mean Bld Glu Estim. 123 mg/dL LAB CHEMISTRY METHOD 03/22/2025 1:43 PM EDT [facility] Blood Venous blood specimen / Unknown Venipuncture / Unknown 03/22/2025 9:58 AM EDT 03/22/2025 9:58 AM EDT us Annalee LOVETT LAB BLOOD ORDERABLES Final Re sult [facility] [address] [place] [address], * (ABNORMAL) Comprehensive metabolic panel (08/31/2024 8:33 AM EST) Sodium 134 133 - 145 mmol/L LAB CHEMISTRY METHOD 08/31/2024 10:26 AM [facility] Potassium 4.6 3.5 - 5.5 mmol/L LAB CHEMISTRY METHOD 08/31/2024 10:26 AM [facility] Chloride 101 96 - 110 mmol/L LAB CHEMISTRY METHOD 08/31/2024 10:26 AM [facility] CO2 29 21 - 32 mmol/L LAB CHEMISTRY METHOD 08/31/2024 10:26 AM [facility] Anion Gap 4 3 - 11 LAB CHEMISTRY METHOD 08/31/2024 10:26 AM [facility] Glucose 109(H) 70 - 100 mg/dL LAB CHEMISTRY METHOD 08/31/2024 10:26 AM [facility] BUN 14 5 - 25 mg/dL LAB CHEMISTRY METHOD 08/31/2024 10:26 AM [facility] Creatinine 0.93 0.70 - 1.30 mg/dL LAB CHEMISTRY METHOD 08/31/2024 10:26 AM [facility] eGFR 86 >=60 mL/min/1. 73m2 LAB CHEMISTRY METHOD 08/31/2024 10:26 AM [facility] Comment:Calculation based on the Chronic Kidney Disease Epidemiology Collaboration (CKD-EPI) equation refit without adjustment for race. BUN/Creatinine Ratio 15.1 LAB CHEMISTRY METHOD 08/31/2024 10:26 AM [facility] Calcium 8.8 8.5 - 10.5 mg/dL LAB CHEMISTRY METHOD 08/31/2024 10:26 AM [facility] AST (SGOT) 17 10 - 42 unit/L LAB CHEMISTRY METHOD 08/31/2024 10:26 AM [facility] ALT (SGPT) 29 10 - 60 unit/L LAB CHEMISTRY METHOD 08/31/2024 10:26 AM [facility] Alkaline Phosphatase 71 42 - 121 unit/L LAB CHEMISTRY METHOD 08/31/2024 10:26 AM [facility] Total Protein 6.8 6.0 - 8.0 g/dL LAB CHEMISTRY METHOD 08/31/2024 10:26 AM [facility] Albumin 3.7 3.2 - 5.0 g/dL LAB CHEMISTRY METHOD 08/31/2024 10:26 AM [facility] Total Bilirubin 0.4 0.0 - 1.4 mg/dL LAB CHEMISTRY METHOD 08/31/2024 10:26 AM [facility] Blood Venous blood specimen / Unknown Venipuncture / Unknown 08/31/2024 8:33 AM EST 08/31/2024 8:33 AM EST Eleanor Hawley MD LAB BLOOD ORDERABLES Final Resul t [facility] [address] [place] [address], * Colonoscopy (10/27/2023) Colonoscopy No interpretation , [...] Maintenance Insurance [employer] Care Teams Cloth Stock Sorter Relationship Specialty Start Date End Date Eleanor Hawley MD [address] [place] [phone] PCP - General Internal Medicine 01/15/20
== END 2025-05-02 10:09 | disposition home or self-care (01) ==
LOC: HO.HUSH 09:40
PROVIDERS: PCP Internal Medicine; Visit Provider Urology
DX: C61 Malignant neoplasm of prostate (principal); R97.21 Rising PSA following treatment for malignant neoplasm of prostate
CPT/HCPCS: 99213

== ENCOUNTER → 2025-05-02 09:39 | Outpatient (BNVA) | payer OTHER, SELFPAY | PROVIDERS: PCP Internal Medicine; Visit Provider Urology | DX: C61 Malignant neoplasm of prostate (principal); R97.21 Rising PSA following treatment for malignant neoplasm of prostate; N52.35 Erectile dysfunction following radiation therapy; R23.2 Flushing | CPT/HCPCS: 99212 ==